=== PATIENT | female | born 1960 | race Caucasian/White ===

== ENCOUNTER 2017-09-16 17:20 | Emergency (ER) | payer SELFPAY ==
[2017-09-16 17:21] VITALS: BP 140/96; PULSE 121; RESP 16; TEMP 36.9; O2SAT 98; BMI 26.5
[2017-09-16 17:33] VITALS: BP 136/84; PULSE 97
[2017-09-16 18:18] LABS: Bacteria 0 SEEN /hpf (None Seen); Mucous, Urine 0 SEEN /hpf (<or=2+)
[2017-09-16 18:21] LABS: Color, Urine Yellow (Yellow); Glucose, Dipstick Normal (Normal); Ketone-Dipstick Negative (Negative); Leukocyte Esterase-Dipstick 500 /ul (Negative); Nitrite-Dipstick Negative (Negative); Occult Blood-Urine 250 /ul (Negative); Protein-Dipstick Negative (Negative); Specific Gravity, Urine 1.005 (1.002-1.030); Urine Bilirubin Dipstick Negative (Negative); Urine Clarity Sl. Cloudy (Clear); Urine Urobilinogen Normal (Normal)
--- NOTE | 2017-09-16 18:21 | ED.VISSUMM ---
- ER Visit Summary Date of Service: 09/16/17 Chief Complaint: UTI symptoms History of Present Illness: The patient is a 57 F with onset of dysuria, urgency, and frequency with urination today. Patient has not noted any blood in her urine. She denies fever or back pain. Physical Examination: Vital signs are unremarkable. Patient is in no acute distress and is nontoxic appearing. Head and neck examination is normal. Heart is regular rate and rhythm. Palpable pulses are noted throughout. Lungs are clear with good air movement throughout. Abdomen is soft with suprapubic tenderness to palpation. There is no back or CVA tenderness. Test Results: Urinalysis reveals 500 leukocyte esterase, 250 blood, 5-10 white blood cells. Emergency Department Course and Treatment: Patient has documented allergies to sulfa and penicillins. She is given a dose of Cipro along with Azo. Treatment Plan: [] Disposition: Discharge Impression: Cystitis This note was generated with [employer] dictation software. It may contain incorrect words, spelling, and punctuation that were not noted in review of the chart prior to signing ED Disposition - Plan for ED Patient: Chief Complaint: Complaint Referrals: Anoop Bales DO [Primary Care Provider] -
[2017-09-16 18:40] LABS: Red Blood Cells-Urine 0-5 SEEN /hpf (0-5); Squamous Epithelial Cells - UA 0-5 SEEN /hpf (5-10); White Blood Cells 5-10 SEEN /hpf (0-5)
--- NOTE | 2017-09-16 18:45 | ED.DEP ---
ED Disposition - Plan for ED Patient: Disposition: Home or Assisted Living Chief Complaint: Complaint Instructions: ED UTI Cystitis Female Prescriptions: Phenazopyridine HCl [Pyridium] 200 mg PO BID PRN PRN #6 tablet PRN Reason: Pain Ciprofloxacin [Cipro] 500 mg PO BID #6 tablet Referrals: Anoop Bales DO [Primary Care Provider] - 1 Week if not improving
[2017-09-16] MEDS: Ciprofloxacin 500 MG Tablet PO (18:52)
[2017-09-16] MEDS: Phenazopyridine 95 MG Tablet 190 MG PO (18:52)
[2017-09-16 18:56] VITALS: BP 131/79; PULSE 91; RESP 16; O2SAT 98
== END 2017-09-16 18:57 | disposition home or self-care (01) ==
PROVIDERS: Emergency Provider Emergency Medicine; Family Provider Student in an Organized Health Care Education/Training Program; PCP Student in an Organized Health Care Education/Training Program
DX: N30.90 Cystitis, unspecified without hematuria (principal); J45.909 Unspecified asthma, uncomplicated; E78.00 Pure hypercholesterolemia, unspecified; K21.9 Gastro-esophageal reflux disease without esophagitis; Z72.0 Tobacco use; Z88.2 Allergy status to sulfonamides
CPT/HCPCS: 81001; 87086; 87088; 87186; 99283

== ENCOUNTER 2018-04-30 11:33 | Emergency (ER) | payer SELFPAY ==
[2018-04-30 11:34] VITALS: BP 128/84; PULSE 121; RESP 16; TEMP 35.8; O2SAT 96; BMI 28.4
--- NOTE | 2018-04-30 12:04 | ED.VISSUMM ---
- ER Visit Summary Date of Service: 04/30/18 Chief Complaint: Left-sided chest discomfort post left axillary lymph node biopsy History of Present Illness: The patient is a 57 F recently diagnosed in late March with breast cancer. On Tuesday she had a left lymph node axillary biopsy. Said since that time she has had pain with taking a deep breath. Denies any significant shortness of breath. No hemoptysis. No history of DVT or PE. She has had 2 recent biopsies. She denies any leg pain or swelling. No fever. No significant cough. She is scheduled to have a left mastectomy for breast cancer. Physical Examination: Well-appearing middle-age female no acute distress. Vital signs are stable her heart rate is in the 120s. Pulse ox is 96% on room air no hypoxia. No distress. H EENT exam smell of smoke on her breath. Otherwise unremarkable. Neck nontender no lymphadenopathy. Lungs clear to auscultation bilaterally. Equal and symmetrical. Heart regular rhythm rate about 110 120 no murmur. Chest wall nontender. No crepitance. No subcu air. Left axillary area there is a small bandage is dry and clean. No signs of infection. Back nontender. Abdomen soft nontender. Normal bowel sounds no peritoneal signs. She is moving all 4 extremities. The neurovascular intact. Calves are nontender without edema or cords. Neurologically she is awake alert with no focal motor deficits. Test Results: Chest x-ray 2 views AP and lateral shows small left-sided apical pneumothorax. I spoke to Dr. Stevan Lamas information technology coordinator for Dr. Davis for general surgery. He did want me to obtain a CT of the chest without contrast which again showed a left-sided pneumothorax equal to or less than 10%. Emergency Department Course and Treatment: Patient will be discharged home to follow-up with her office in a day or so. Treatment Plan: Follow-up with Dr. Annie Davis's office tomorrow to be reevaluated for the pneumothorax. The pneumothorax may be secondary to the biopsy and may be from a ruptured apical lung bleb from her smoking history. Disposition: Discharge Impression: Left-sided chest pain secondary to a small left-sided pneumo thorax History of recently diagnosed breast CA with recent left axillary lymph node biopsy This note was generated with [employer] dictation software. It may contain incorrect words, spelling, and punctuation that were not noted in review of the chart prior to signing ED Disposition - Plan for ED Patient: Chief Complaint: Shortness of Breath Referrals: Yeison Murcia MD [Primary Care Provider] -
--- NOTE | 2018-04-30 12:15 | RAD_ITS ---
STUDY: X-RAY CHEST REASON FOR EXAM: Female, 57 years old. Shortness of breath and pain with breathing. Recent diagnosis of breast cancer as well as left axillary lymph node biopsy 2 days ago. TECHNIQUE: PA and lateral views of the chest. COMPARISON: None. FINDINGS: There is a small left apical pneumothorax (<10%). There is hyperinflation of the lungs consistent with obstructive lung disease. There is minor subsegmental atelectasis in the left lung base. There is no demonstrated pleural abnormality. Normal size heart. Normal mediastinum and lulu. Normal visualized pulmonary arteries. There is mild atherosclerotic calcification of the aortic arch. Normal visualized thoracic spine. Normal visualized ribs, clavicles, and shoulders. There is no demonstrated abnormality of the visualized soft tissue structures of the upper abdomen. RAD/Chest PA and Lateral IMPRESSION: 1. Hyperexpanded suggesting obstructive pulmonary disease. 2. Small left apical pneumothorax with mild subsegmental atelectasis in the left lung base. N.B. : The above information has been verbally conveyed by Negro Taylor MD to Jassi Cabrera MD, on 04/30/2018 12:47:40 (ET). Electronically Signed: Negro Taylor MD at 12:49 EST , Service support ,
--- NOTE | 2018-04-30 12:41 | CT_ITS ---
STUDY: CT CHEST/THORAX WITHOUT CONTRAST REASON FOR EXAM: Female, 57 years old. Shortness of breath and chest pain 2 days after left axillary lymph node biopsy. Pneumothorax noted on chest x-ray. RADIATION DOSAGE (If Supplied By Facility): CTDIvol = ( 10.73 ) mGy, DLP = ( 439.79 ) mGycm TECHNIQUE: Transaxial imaging was performed without the administration of intravenous contrast material. Multiplanar coronal and sagittal images were reformatted. Individualized dose optimization techniques were used for this CT. COMPARISON: PA and lateral chest x-ray 1217 hours. FINDINGS: There is a small left pneumothorax (R10%). Atelectasis seen in the left lung base and, to a lesser degree, in the apical and anterior periphery of the left upper lobe where there is also minimal subsegmental atelectasis in the right posterior costophrenic sulcus. There is subtle 1 cm groundglass density in the lateral left upper lobe on series 4 image 46, series 602 image 92 may be focal volume loss, hemorrhage, or inflammatory change. Normal heart and pericardium. There is a 1.55 x 0.9 x 1.9 cm precarinal lymph node. Just below this is a 1.25 x 0.65 x 0.85 cm lymph node with a fatty hilus. Other nonspecific lymph nodes also seen in the mediastinal tissues and aorticopulmonary window. There is a 1.75 x 1.2 x 0.35 cm lymph node medial to the right lower lobe bronchus. Normal left hilar region. Normal unenhanced pulmonary arteries. There is mild atherosclerotic calcification of the aortic arch. There are scattered, mild degenerative changes of the thoracic spine. There is ill-defined hazy and stranding density of mild hemorrhage or edema in the left axillary tissues, surrounding a number of upper normal size lymph nodes. There is no demonstrated abnormality of the visualized upper abdomen. CT/Chest without Contrast IMPRESSION: 1. Small left pneumothorax. There is mild posterior basilar subsegmental atelectasis, greater on the left. 2. Ill-defined ecchymosis or edema seen in the left axillary tissue surrounding a number of upper normal size lymph nodes. 3. Mildly enlarged precarinal lymph node, as well as other nonspecific lymph nodes in the mediastinal tissues and aorticopulmonary window. No overtly suspicious adenopathy. Electronically Signed: Negro Taylor MD at 13:39 EST , Service support ,
--- NOTE | 2018-04-30 14:00 | ED.DEP ---
ED Disposition - Plan for ED Patient: Disposition: Home or Assisted Living Chief Complaint: Shortness of Breath Instructions: Pneumothorax (Collapsed Lung) Prescriptions: Hydrocodone/Acetaminophen [[place] 7.5-325 Tablet] 1 ea PO Q6H PRN PRN #14 tab PRN Reason: Pain Referrals: Annie Davis MD [STAFF PHYSICIAN] - 1 Day Additional Instructions: Follow-up with Dr. Annie Davis's office tomorrow. You need to be reevaluated to make sure that the thorax is improving and not getting larger. They will need to repeat a chest x-ray in 1-2 days.
[2018-04-30 14:08] VITALS: BP 128/74; PULSE 85; RESP 16; O2SAT 95
== END 2018-04-30 14:09 | disposition home or self-care (01) ==
PROVIDERS: Emergency Provider Emergency Medicine; Family Provider Internal Medicine; PCP Internal Medicine
DX: J93.9 Pneumothorax, unspecified (principal); Z85.3 Personal history of malignant neoplasm of breast; Z72.0 Tobacco use; Z90.11 Acquired absence of right breast and nipple
CPT/HCPCS: 71046; 71250; 99283

== ENCOUNTER 2018-09-14 17:07 | Emergency (ER) | payer MEDICAID, SELFPAY ==
[2018-09-14 17:09] VITALS: BP 130/74; PULSE 90; RESP 17; TEMP 36.9; O2SAT 95; BMI 28.3
[2018-09-14 17:39] VITALS: O2SAT 100
--- NOTE | 2018-09-14 17:39 | EKG12_ITS ---
Test Reason : PALPS Blood Pressure : / mmHG Vent. Rate : 080 BPM Atrial Rate : 080 BPM P-R Int : 128 ms QRS Dur : 086 ms QT Int : 404 ms P-R-T Axes : 055 070 035 degrees QTc Int : 465 ms Normal sinus rhythm Normal ECG Confirmed by CHICO CARR, AYO ([id number]), video effects editor FRANTZ IBARRA ([id number]) on 09/18/2018 11:08:45 AM Referred By: LUIS CARLOS Confirmed By:AYO GOLDEN MD
--- NOTE | 2018-09-14 17:40 | RAD_ITS ---
STUDY: X-RAY CHEST REASON FOR EXAM: Female, 58 years old. Palpitations. History of breast cancer. TECHNIQUE: Single AP portable view of the chest. COMPARISON: CT of the chest, April 30, 2018. Chest, April 30, 2018. FINDINGS: Telemetry wires overlie the chest. There is a right subclavian Port-A-Cath with its tip in the distal superior vena cava. The lungs are hyperexpanded. There is chronic interstitial changes most marked at the lung bases. No new infiltrate or mass is seen. There is resolution of the left pneumothorax noted on the prior study. There is no demonstrated pleural abnormality. Normal size heart. Normal mediastinum and lulu. Normal visualized pulmonary arteries. Again seen is minimal atherosclerotic changes of the aortic arch. The thoracic spine is obscured by the mediastinum. Normal visualized ribs, clavicles, and shoulders. There is no demonstrated abnormality of the visualized soft tissue structures of the upper abdomen. RAD/Chest 1 View (Portable) IMPRESSION: 1. Right Port-A-Cath not noted on the prior study. 2. Probable COPD no acute cardiopulmonary disease Electronically Signed: Jasbir Dumont DO at 18:15 EDT Tel [phone], Service support ,
--- NOTE | 2018-09-14 17:40 | ED.VISSUMM ---
- ER Visit Summary Date of Service: 09/14/18 Chief Complaint: Palpitations History of Present Illness: The patient is a 58 F of breast CA with recently diagnosed lymphatic, bone and lung metastases. Currently under chemotherapy with the last chemotherapy being last week. She also has hypothyroidism. Patient states since Tuesday and Tuesday she had intermittent elevated heart rate. She denies chest pain. She denies shortness of breath. She denies hemoptysis. She is never had a DVT or PE. She denies calf pain or swelling. States that accelerated heart rate is intermittent. Nothing specifically makes it better or worse. She denies any melena or fever. Physical Examination: Well-appearing middle-age female. Vital signs are stable and afebrile. Currently her heart rate is 90. Her pulse ox 95% room air no signs of hypoxia. No distress. HEENT exam unremarkable except she does have a blue wig on. Neck nontender no lymphadenopathy. Lungs clear to auscultation bilaterally. Heart regular rhythm rate about 90 occasional PVC. No murmur. Abdomen soft and nontender. Extremities moves all 4. Calves are nontender without edema or cords. Neurologically she is awake and alert with no focal motor deficits. Test Results: CBC White count 2 hemoglobin 10.6. Chemistries unremarkable normal creatinine and gap. Troponin normal. D-dimer normal. EKG sinus rhythm rate 80 with no signs of dysrhythmia or ischemia. Chest x-ray chronic changes COPD right-sided MediPort. No acute abnormality. Emergency Department Course and Treatment: Patient with palpitations and PVCs. Repeat exam patient doing well at 1935. Discussed all test results will be discharged home. Treatment Plan: Follow-up with your doctor. Disposition: Discharge Impression: Acute palpitations secondary to PVCs History of breast cancer with metastases This note was generated with [employer] dictation software. It may contain incorrect words, spelling, and punctuation that were not noted in review of the chart prior to signing ED Disposition - Plan for ED Patient: Referrals: Sujatha Mcdonald MD [Primary Care Provider] -
--- NOTE | 2018-09-14 17:42 | NURSING ---
NO OLD EKGS
[2018-09-14 18:26] VITALS: BP 126/78; PULSE 73; RESP 21; O2SAT 98
[2018-09-14 18:35] LABS: Basophil# 0.05 X10^3/uL; Basophil% 2.1 % (0-1); Hematocrit 32.3 % (37-47); Hemoglobin 10.6 g/dl (12.0-15.0); Mean Corp Hgb Conc 32.8 g/gl (32-36); Mean Corpuscular Hgb 29.5 pg (27.0-32.0); Mean Platelet Vol. 9.7 fl (6.2-12.0); Platelet Count 253 K/mm3 (150-450); RBC Distribution Width CV 13.8 % (11.6-14.6); RBC Distribution Width SD 45.6 fl (35.1-43.9); Red Blood Count 3.59 M/mm3 (4.2-5.4); White Blood Count 2.4 K/mm3 (4.4-11.0)
[2018-09-14] MEDS: Aspirin 81 MG TAB.CHEW 324 MG PO (18:35)
[2018-09-14 18:36] LABS: Absolute Lymphocyte Count 0.81 X10^3/ul (0.83-4.51); Absolute Neutrophil Count 1.3 X10^3/uL (2.0-7.7); Differential Indicated SCAN CRITERIA MET; Lymphocyte # 0.81 X10^3/ul (4.0); Lymphocyte % 33.6 % (19-41); Monocyte# 0.23 X10^3/uL; Monocyte% 9.5 % (0-10); Neutrophil # 1.29 X10^3/uL (2.7-7.7); Neutrophil % 53.6 % (47-70); POSITIVE COUNT NO; POSITIVE DIFFERENTIAL NO; POSITIVE MORPHOLOGY YES
[2018-09-14 18:40] LABS: D-Dimer Quantitative (DVT/PE) < 0.27 FEU/ug/m (0.27-0.49)
[2018-09-14 18:45] LABS: Differential Comment SCANNED
[2018-09-14 18:47] LABS: Anion Gap 7 (5-15); BUN 13 mg/dL (7-18); BUN/Creat Ratio 19.4 RATIO (10-20); Calcium,Total 8.7 mg/dL (8.5-10.1); Chloride 106 mmol/L (98-107); Creatinine, Serum 0.67 mg/dL (0.55-1.02); EST Glomerular Filtration Rate 96 mL/min (>60); Est Glom Filt Rate - Afr Amer 117 mL/min (>60); Estimated Creatinine Clearance 86.73 ml/min; Glucose 115 mg/dL (74-106); Potassium 3.7 mmol/L (3.5-5.1); Sodium Level 140 mmol/L (136-145)
--- NOTE | 2018-09-14 19:37 | ED.DEP ---
ED Disposition - Plan for ED Patient: Instructions: ED Palpitations Prescriptions: Lorazepam [Ativan] 1 mg PO DAILY PRN PRN #20 tab PRN Reason: prn anxiety Referrals: Sujatha Mcdonald MD [Primary Care Provider] - As Needed Additional Instructions: Return if feeling worse otherwise follow-up with your doctor.
[2018-09-14 20:32] VITALS: BP 124/69; PULSE 87; RESP 16; O2SAT 98
== END 2018-09-14 20:36 | disposition home or self-care (01) ==
LOC: ED 18:00
PROVIDERS: Emergency Provider Emergency Medicine; Family Provider Internal Medicine; PCP Internal Medicine
DX: I49.3 Ventricular premature depolarization (principal); R00.2 Palpitations; C50.919 Malignant neoplasm of unspecified site of unspecified female breast; C78.00 Secondary malignant neoplasm of unspecified lung; C77.9 Secondary and unspecified malignant neoplasm of lymph node, unspecified; C79.51 Secondary malignant neoplasm of bone; E03.9 Hypothyroidism, unspecified
CPT/HCPCS: 36591; 71045; 80048; 84484; 85025; 85379; 93005; 99284; A4216

== ENCOUNTER 2018-10-15 16:34 | Emergency (ER) | payer MEDICAID, SELFPAY ==
[2018-10-15 16:37] VITALS: BP 124/101; PULSE 111; RESP 16; TEMP 36.8; O2SAT 96; BMI 28.0
[2018-10-15 17:16] LABS: Color, Urine Yellow (Yellow); Glucose, Dipstick Normal (Normal); Ketone-Dipstick 5 mg/dl (Negative); Leukocyte Esterase-Dipstick 500 /ul (Negative); Nitrite-Dipstick Negative (Negative); Occult Blood-Urine 25 /ul (Negative); Protein-Dipstick 15 mg/dl (Negative); Specific Gravity, Urine 1.025 (1.002-1.030); Urine Bilirubin Dipstick Negative (Negative); Urine Clarity Clear (Clear); Urine Urobilinogen 1 mg/dl (Normal)
[2018-10-15 17:26] LABS: Bacteria 3+ /hpf (None Seen); Mucous, Urine 2+ /hpf (<or=2+); Red Blood Cells-Urine 0-5 SEEN /hpf (0-5); Squamous Epithelial Cells - UA 5-10 SEEN /hpf (5-10); White Blood Cells 50-100 SEEN /hpf (0-5)
--- NOTE | 2018-10-15 17:29 | ED.VISSUMM ---
- ER Visit Summary Date of Service: 10/15/18 Chief Complaint: [Pelvic pain] History of Present Illness: The patient is a 58 F [presents the emergency department with complaint of pelvic discomfort. Patient states that she is currently on chemotherapy for history of breast cancer. Patient states the chemotherapy affects her mucous membranes and she developed some ulcerations on her labia. Patient states that she has been washing her labia with some sort of wipes and sustained this abrasion that is not wanting to heal well. Patient now also describing burning with urination. Describes frequency. She denies any fevers. Patient has history of hypothyroidism, high cholesterol, asthma, breast cancer, and GERD.] Physical Examination: [HEENT-PERRLA, EOMI. Cranial nerves II through XII grossly intact. TMs clear. Mucous membranes moist. No adenopathy. Cardiovascular-regular rate and rhythm without murmur or ectopy Lungs-clear to auscultation, chest wall stable without crepitus or subcu emphysema Abdomen-normoactive bowel sounds, soft, nontender, no rebound or rigidity, no peritoneal signs. exam-patient refused exam Extremities-intact ?4, normal range of motion, normal pulses, atraumatic] Test Results: [Urinalysis obtained was positive for 500 leukocyte esterase as well as 50-100 WBCs and +3 bacteria. Urine culture was sent.] Emergency Department Course and Treatment: [Patient was treated with ciprofloxacin.] Treatment Plan: [Patient will be referred to EQUITY DIRECTOR on-call as patient refused to allow me to examine her. Patient will be treated with Cipro.] Disposition: [Discharged home in stable condition] Impression: [UTI] This note was generated with [employer] dictation software. It may contain incorrect words, spelling, and punctuation that were not noted in review of the chart prior to signing ED Disposition - Plan for ED Patient: Referrals: Sujatha Mcdonald MD [Primary Care Provider] -
--- NOTE | 2018-10-15 17:32 | ED.DEP ---
ED Disposition - Plan for ED Patient: Instructions: ED UTI Cystitis Female Prescriptions: Ciprofloxacin [Cipro] 500 mg PO BID #14 tab Phenazopyridine HCl [Pyridium] 200 mg PO TID #10 tab Referrals: Sujatha Mcdonald MD [Primary Care Provider] - Hortensia Coleman MD [STAFF PHYSICIAN] - 3-5 Days
[2018-10-15 17:39] VITALS: BP 126/86; PULSE 87; RESP 16; O2SAT 97
[2018-10-15] MEDS: Ciprofloxacin 500 MG Tablet PO (17:39)
== END 2018-10-15 17:52 | disposition home or self-care (01) ==
PROVIDERS: Emergency Provider Emergency Medicine; Family Provider Internal Medicine; PCP Internal Medicine
DX: N39.0 Urinary tract infection, site not specified (principal); K21.9 Gastro-esophageal reflux disease without esophagitis; E03.9 Hypothyroidism, unspecified; Z85.3 Personal history of malignant neoplasm of breast; Z87.891 Personal history of nicotine dependence; E78.00 Pure hypercholesterolemia, unspecified; J45.909 Unspecified asthma, uncomplicated
CPT/HCPCS: 81001; 99283

== ENCOUNTER 2021-02-18 10:55 | Emergency (ER) | payer MEDICAID, SELFPAY ==
[2021-02-18 10:56] VITALS: BP 112/89; PULSE 130; RESP 18; TEMP 36.6; O2SAT 99; BMI 28.2
--- NOTE | 2021-02-18 11:08 | ED.RN ---
PT STATES HER HEART HAS BEEN POUNDING FOR 3 DAYS. RESPIRATORY CALLED FOR EKG. HEART MONITOR PLACED.
--- NOTE | 2021-02-18 11:16 | EKG12_ITS ---
Test Reason : PALP Blood Pressure : / mmHG Vent. Rate : 126 BPM Atrial Rate : 126 BPM P-R Int : 136 ms QRS Dur : 076 ms QT Int : 332 ms P-R-T Axes : 081 012 041 degrees QTc Int : 480 ms Sinus tachycardia with frequent and consecutive Premature ventricular complexes and Fusion complexes Biatrial enlargement Indeterminate axis Nonspecific ST abnormality Poor R wave progression Abnormal ECG Confirmed by ANNAMARIE CARR, LISA ([id number]), publishing editor FRANTZ IBARRA ([id number]) on 02/24/2021 7:37:38 AM Referred By: MARC/RANJAN Confirmed By:LISA DE LUNA MD
--- NOTE | 2021-02-18 11:37 | RAD_ITS ---
STUDY: X-RAY CHEST REASON FOR EXAM: Female, 60 years old. Chest pain/pressure TECHNIQUE: PA and lateral views of the chest. COMPARISON: 09/14/2018 FINDINGS: EKG leads overlie the chest, previously noted right subclavian port has been removed. Lungs are mildly hyperexpanded without a superimposed process.. There is no demonstrated pleural abnormality. Normal size heart. Normal mediastinum and lulu. Normal visualized pulmonary arteries. Normal visualized aortic arch and descending thoracic aorta. Normal visualized thoracic spine. Normal visualized ribs, clavicles, and shoulders. There is no demonstrated abnormality of the visualized soft tissue structures of the upper abdomen. RAD/Chest PA and Lateral IMPRESSION: No acute pulmonary process Electronically Signed: Negro Shah MD at 12:19 EDT , Service support ,
--- NOTE | 2021-02-18 11:39 | EDS_ITS ---
HPI History of Present Illness Chief Complaint: Back Informant: patient Onset/Context/Timing Onset: Weeks Context: Gradual Onset Injury: lifting and bending Timing: Continuous Quality: Sharp and Aching Location: Thoracic Current Severity: Mild Maximum Severity: Moderate Worsened by: improves with Movement, Bending and Lifting Relieved by: Remaining Still Associated Symptoms Associated Symptoms: Negative for Numbness, Tingling, Radiation to Right Leg, Radiation to Left Leg, Fever, Abdominal Pain, Dysuria, Unable to Ambulate, Unable to Transfer, Urinary Retention, Urinary Incontinence, Constipation and Fecal Incontinence Narrative Narrative: 60-year-old female had a history of breast cancer 2 to 3 years ago for which she had a left mastectomy. She did have metastases to her lymph nodes. States about 3 weeks ago her fell she lifted him up to help him up off the ground and several days later developed pain in her left posterior lower rib cage and flank. Denies any other symptoms. Worse with movement. Worse with bending or turning. No shortness of breath. No chest pain. No dy suria or hematuria. No falls or trauma herself. No fever or chills. Patient is having PVCs and states she recently had a low potassium. Prior similar symptoms: No Recent Illness/Hospitalization: No PFSH PFSH Medical History Hx of breast cancer Hypothyroid Home Medications levothyroxine 150 mcg PO DAILY 09/10/13 [History Last Taken Unknown] lorazepam 1 mg PO DAILY PRN PRN #20 tab 09/14/18 [Rx Last Taken Unknown] Allergy/AdvReac Type Severity Reaction Status Date / Time Sulfa (Sulfonamide Allergy Anaphylaxis Verified 02/18/21 10:57 Antibiotics) Penicillins [PCN] AdvReac Nausea Verified 02/18/21 10:57 Surgical History Hx of left mastectomy Social History Smoking Status: Former smoker ROS ROS ED ROS Narrative Denies fever or chills. Denies nausea vomiting diarrhea. Denies dysuria hematuria. Does have increased left posterior rib cage pain with movement. Review of Systems ROS Unobtainable: Denies due to encephalopathy Constitutional Constitutional ED: Denies fever(s) or subjective Eyes Eyes: Denies change in vision ENT ENT ED: Denies ear pain or sore throat Cardiovascular Cardiovascular: Denies chest pain Respiratory/Chest Respiratory/Chest: Denies dyspnea or sputum Gastrointestinal Gastrointestinal: Denies abdominal pain, diarrhea, nausea or vomiting Genitourinary Genitourinary ED: Denies dysuria Musculoskeletal Musculoskeletal: Denies myalgias Integumentary Denies rash Neurologic Neurologic: Denies headache(s) Psychiatric Psychiatric: Denies depression Endocrine Endocrinology: Denies polyuria Hematologic/Lymphatic Hematologic/Lymphatic: Denies easy bruising Allergic/Immunologic Allergic/Immunologic ED: Denies urticaria EXAM Physical Exam Narrative Exam Narrative: Well-appearing middle-aged female. No acute distress HEENT exam unremarkable. Lungs are clear. Heart regular rate and rhythm no murmur. Chest nontender. Back nonreproducible tenderness. But left posterior rib cage pain with movement. Abdomen soft nontender no masses no peritoneal signs. Patient moving all 4 extremities. Neurovascular intact. No edema. Neurologically awake alert no focal deficits. Const Vital Signs: 02/18/21 10:56 Temperature 97.9 F Temperature Source Temporal Pulse Rate 130 H Respiratory Rate 18 Blood Pressure 112/89 H Blood Pressure Mean 96 Pulse Ox 99 Oxygen Delivery Method Room Air Positive well nourished and well developed; Negative for obese, cachectic, contractures or unkempt General Appearance ED: well developed and NAD; Negative for unkempt, cachectic or contractures Nutritional Appearance: Negative for cachectic or obese HEENT Reports moist mucous membranes Negative for trauma or tenderness Eyes PERRL and EOMs intact bilaterally Neck no lymphadenopathy, supple and no JVD General: Negative for tenderness Resp normal respiratory effort and clear to auscultation bilaterally Cardio regular rate, regular rhythm, S1 normal heart sound, S2 normal heart sound and no murmurs GI normal to inspection, nondistended, normoactive bowel sounds, soft to palpation, non-tender, non-distended and no masses Palpation: Negative for tender Back/Spine normal to inspection and no thoracic nor lumbar tenderness General Back: Negative for CVA tenderness Cervical Spine: Negative for cervical spine tenderness and Negative for paracervical muscle tenderness Thoracic Spine / Upper Back: Negative for paraspinal muscle tenderness Lumbar Spine / Lower Back: straight leg raise negative bilaterally Extremity normal to inspection General Extremety ED: Negative for edema or tenderness General Extremity: Negative for edema Neuro oriented x3 and no sensory deficits noted Sensorium / Orientation: alert; Negative for confused, lethargic or stuporous Psych mental status grossly normal Appearance: Negative for unkempt Attitude: No agitated and No other Mood & Affect: Negative for depressed or tearful Skin no rashes or lesions noted and no wounds MDM MDM MDM Narrative Medical decision making narrative: 60-year-old female with left flank. Pain primarily over the posterior ribs is not reproducible get worse with movement. I do think this is musculoskeletal however with her history of cancer I am obtaining some screening labs and an x-ray of her chest. Repeat exam patient is doing well at 1:20 PM. We discussed all of her test results of x-ray and she will be discharged home. Ice to the area, anti- inflammatories and follow-up if not improving. Lab Data Attestation: I reviewed the patient's lab results. Lab results narrative: CBC had a white count 9.8. Hemoglobin 14. Electrolytes were normal creatinine glucose 116. Chest x-ray portable no acute abnormality. Labs: Laboratory Results - last 24 hr 02/18/21 02/18/21 11:44 11:44 WBC 9.8 RBC 4.92 Hgb 14.7 Hct 43.8 MCV 89.0 MCH 29.9 MCHC 33.6 RDW Std Deviation 44.6 H RDW Coeff of Corrine 13.6 Plt Count 230 MPV 11.0 Immature Gran % (Auto) 0.300 Neut % (Auto) 72.0 H Lymph % (Auto) 22.2 [place] % (Auto) 4.2 Eos % (Auto) 0.4 Baso % (Auto) 0.9 Absolute Neuts (auto) 7.0 Absolute Lymphs (auto) 2.17 Nucleated RBC % 0 Sodium 140 Potassium 4.0 Chloride 111 H Carbon Dioxide 25.0 Anion Gap 4 L BUN 11 Creatinine 0.69 Estim Creat Clear Calc 82.18 Est GFR (MDRD) Af Amer 113 Est GFR (MDRD) Non-Af 93 BUN/Creatinine Ratio 16.0 Glucose 116 H Calcium 9.6 Radiography Diagnostic Testing: Radiology Impression Chest X-Ray 02/18/21 11:37 IMPRESSION: No acute pulmonary process Electronically Signed: Negro Shah MD at 12:19 EDT , Service support , Chest x-ray AP and lateral 2 views interpreted by myself and the radiologist shows no acute abnormality. Normal cardiac silhouette. Normal ribs. No infiltrate. Rhythm Strip Rhythm Strip: Sinus Rhythm Rate: 126 Ectopy: PVC(s) EKG Initial EKG: Attestation: I personally reviewed and interpreted this EKG as follows: Interpretation: Sinus Rhythm and No Acute Injury Pattern Comments: Sinus tachycardia rate of 126 PVCs that are frequent. No signs of CA or ischemia. Prior EKG tracings: available for review Discharge Plan Triage Chief Complaint: Back ED Provider: Dru Cabrera Dx/Rx/DC Orders Clinical Impression: Muscle strain of left upper back Instructions: ED Back Sprain/Strain Prescriptions: No Action levothyroxine 150 MCG tablet 150 mcg PO DAILY RF: 0 lorazepam 1 MG tablet 1 mg PO DAILY PRN PRN (Reason: prn anxiety) Qty: 20 RF: 0 Primary Care Provider: Sujatha Mcdonald Referrals: Sujatha Mcdonald MD [Primary Care Provider] - 10-14 Days if not better Activity Restrictions/Additional Instructions: Your labs and chest x-ray were unremarkable. This appears to be a strain of the intercostal muscles of your posterior rib cage. This should progressively improve but may take several weeks. Ice to your back. Motrin for pain and inflammation. Follow-up if not improving. Disposition Disposition: Home, Self Care
[2021-02-18 11:52] LABS: Absolute Lymphocyte Count 2.17 X10^3/uL (0.83-4.51); Basophil# 0.09 X10^3/uL; Basophil% 0.9 % (0-1); Eosinophil# 0.04 X10^3/uL; Eosinophils% 0.4 % (0-5); Hematocrit 43.8 % (37-47); Hemoglobin 14.7 g/dL (12.0-15.0); Lymphocyte # 2.17 X10^3/ul (0.83-4.51); Lymphocyte % 22.2 % (19-41); Mean Corp Hgb Conc 33.6 g/dL (32-36); Mean Corpuscular Hgb 29.9 pg (27.0-32.0); Monocyte# 0.41 X10^3/uL; Monocyte% 4.2 % (0-10); NRBC Flagged by Analyzer 0 % (0-5); Neutrophil # 7.02 X10^3/uL (2.7-7.7); Platelet Count 230 K/mm3 (150-450); RBC Distribution Width CV 13.6 % (11.6-14.6); RBC Distribution Width SD 44.6 fl (35.1-43.9); Red Blood Count 4.92 M/mm3 (4.2-5.4); White Blood Count 9.8 K/mm3 (4.4-11.0)
[2021-02-18 12:04] LABS: Anion Gap 4 (5-15); BUN 11 mg/dL (7-18); Calcium,Total 9.6 mg/dL (8.5-10.1); Chloride 111 mmol/L (98-107); Creatinine, Serum 0.69 mg/dL (0.55-1.02); EST Glomerular Filtration Rate 93 mL/min (>60); Est Glom Filt Rate - Afr Amer 113 mL/min (>60); Estimated Creatinine Clearance 82.18 ml/min; Glucose 116 mg/dL (74-106); Sodium Level 140 mmol/L (136-145)
[2021-02-18 13:37] VITALS: PULSE 91; RESP 18; O2SAT 98
== END 2021-02-18 13:38 | disposition home or self-care (01) ==
PROVIDERS: Emergency Provider Emergency Medicine; PCP Internal Medicine
DX: S29.012A Strain of muscle and tendon of back wall of thorax, initial encounter (principal); X58.XXXA Exposure to other specified factors, initial encounter; E03.9 Hypothyroidism, unspecified; I49.3 Ventricular premature depolarization; Z85.3 Personal history of malignant neoplasm of breast; Z87.891 Personal history of nicotine dependence
CPT/HCPCS: 71046; 80048; 85025; 93005; 99283; A4216

== ENCOUNTER 2021-03-14 12:12 | Emergency (ER) | payer MEDICAID, SELFPAY ==
[2021-03-14 12:14] VITALS: BP 146/86; PULSE 109; RESP 16; TEMP 36.4; O2SAT 98; BMI 25.2
--- NOTE | 2021-03-14 12:28 | EKG12_ITS ---
Test Reason : SIDE PAIN Blood Pressure : / mmHG Vent. Rate : 096 BPM Atrial Rate : 096 BPM P-R Int : 140 ms QRS Dur : 078 ms QT Int : 334 ms P-R-T Axes : 082 024 027 degrees QTc Int : 421 ms Normal sinus rhythm with sinus arrhythmia Right atrial enlargement Indeterminate axis Low voltage QRS (Limb Leads) Poor R wave progression Borderline ECG Confirmed by ANNAMARIE CARR, LISA ([id number]), social media editor FRANTZ IBARRA ([id number]) on 03/16/2021 1:20:10 PM Referred By: NEETA Confirmed By:LISA DE LUNA MD
--- NOTE | 2021-03-14 12:28 | CT_ITS ---
HISTORY: Pain EXAMINATION: CT Abdomen And Pelvis W/O Contrast Injection TECHNIQUE: Multiple axial images were obtained of the abdomen and pelvis without oral or IV contrast. A radiation dose optimization technique was used for this scan. IV Contrast dosage and agent: None. Oral contrast: None. COMPARISON: None FINDINGS: LOWER CHEST: Lung bases are clear. No cardiomegaly or pericardial effusion. LIVER: Homogeneous. No focal mass. GALLBLADDER AND BILIARY TREE: No calcified gallstones. No gallbladder distension or wall edema. No intra- or extrahepatic biliary ductal dilation. PANCREAS: No focal cystic or solid mass. SPLEEN: Normal size without focal cystic or solid mass. ADRENAL GLANDS: No nodules. KIDNEYS AND URETERS: Normal renal size and position. No hydronephrosis or nephrolithiasis. PERITONEUM: No ascites or free air. BOWEL: Normal appendix. No stomach or bowel distension. No focal inflammatory bowel wall changes. LYMPH NODES: No enlarged mesenteric or retroperitoneal lymph nodes. VESSELS: Aorta is non-dilated. URINARY BLADDER: Unremarkable. REPRODUCTIVE ORGANS: No pelvic masses. ABDOMINAL WALL: Small fat-containing supraumbilical ventral hernia. BONES: No acute or aggressive abnormality. CT/Abdomen/Pelvis without Cont IMPRESSION: No acute findings in the abdomen or pelvis. Individualized dose optimization techniques were used for this CT. at 1354 Reported and signed by: Asaf Lewis MD Electronically Signed: Asaf Lewis MD at 13:53 EDT Tel , Service support ,
--- NOTE | 2021-03-14 12:29 | EDS_ITS ---
HPI HPI - GI History of Present Illness Chief Complaint: Abd Pain Detail of Chief Complaint: Abdominal pain that started 3 or 4 days ago Informant: patient Narrative Narrative: Patient presents to the emergency department complaint of right upper quadrant pain that started 3 to 4 days ago. Patient states the pain was intermittent at first but now more continuous over the last 24 hours. Patient states she had some vomiting 5 days ago but none since. Patient states that she is always had a hard time eating spicy or greasy foods but does not feel like eating actually makes this pain worse. She is had no fevers. She denies urinary symptoms. Patient has history of breast cancer in remission and she is had prior left mastectomy. [facility] Medical History Hx of breast cancer Hypothyroid Home Medications levothyroxine 150 mcg PO DAILY 09/10/13 [History Last Taken Unknown] Allergy/AdvReac Type Severity Reaction Status Date / Time Sulfa (Sulfonamide Allergy Anaphylaxis Verified 03/14/21 12:16 Antibiotics) Penicillins [PCN] AdvReac Nausea Verified 03/14/21 12:16 Surgical History Hx of left mastectomy Social History Smoking Status: Former smoker ROS ROS ED Constitutional Constitutional ED: Reports systems reviewed and no addt'l complaints, except as documented; Denies body ache(s), change in weight or chills Eyes Eyes: Denies acute decrease in peripheral vision, change in vision, double vision or loss of vision ENT ENT ED: Reports none; Denies ear pain, lip swelling, loss taste/smell, neck pain, otalgia or sore throat Cardiovascular Cardiovascular: Reports none; Denies abdominal pain, chest pain with activity, leg edema, lightheadedness, palpitations, rapid heart rate or syncope Respiratory/Chest Respiratory/Chest: Reports none; Denies change in mental status, dry cough, dyspnea, hemoptysis, shortness of breath at rest or shortness of breath with exertion Gastrointestinal Gastrointestinal: Reports none and abdominal pain; Denies change in stool character, diarrhea, hematemesis, hematochezia, melena, rectal bleeding or vomiting Genitourinary Genitourinary ED: Reports none; Denies abdominal discomfort, anuria, dysuria, genital pain or polyuria Musculoskeletal Musculoskeletal: Reports none; Denies arthralgias, back pain, difficulty walking, extremity pain, muscle weakness or myalgias Integumentary Reports none; Denies abscess or rash Neurologic Neurologic: Reports none; Denies abnormal gait, confusion, focal weakness, frequent falls, headache(s), loss of vision, numbness, paresthesias, radicular pain, vertigo or weakness Psychiatric Psychiatric: Reports systems reviewed and no addt'l complaints, except as documented and none; Denies behavioral changes, confusion, difficulty concentrating, hallucinations, suicidal ideation, tactile hallucinations or visual hallucinations Endocrine Endocrinology: Denies none, cold intolerance, excessive sweating, fatigue or heat intolerance Hematologic/Lymphatic Hematologic/Lymphatic: Reports none; Denies anemia, easy bleeding or easy bruising Allergic/Immunologic Allergic/Immunologic ED: Denies as per HPI, none, lip swelling, mouth swelling, throat swelling, tongue swelling or hives EXAM Physical Exam Const Vital Signs: 03/14/21 12:14 Temperature 97.6 F L Temperature Source Temporal Pulse Rate 109 H Respiratory Rate 16 Blood Pressure 146/86 H Blood Pressure Mean 106 Pulse Ox 98 Oxygen Delivery Method Room Air Positive well nourished and well developed General Appearance ED: well developed and NAD HEENT Reports TM's clear and moist mucous membranes normocephalic and atraumatic; Negative for trauma or tenderness Tympanic Membrane ED: Yes TM's clear Eyes PERRL and EOMs intact bilaterally General Eye ED: Negative for pale conjunctiva or scleral icterus Neck no lymphadenopathy, supple and no JVD General: Negative for tenderness Chest Wall inspection of chest normal and palpation of chest normal Chest: Negative for tenderness Resp normal respiratory effort and clear to auscultation bilaterally Effort and Inspection: Negative for respiratory distress or pain with movement Auscultation: Negative for rhonchi, wheezes or diminished lung sounds Cardio regular rate, regular rhythm, S1 normal heart sound, S2 normal heart sound and no murmurs Peripheral Pulses: pulses 2+ throughout GI normal to inspection, nondistended, normoactive bowel sounds, soft to palpation, non-distended and no masses GI Narrative: Tenderness on palpation of the right chest wall in the midaxillary line.Patient has mild tenderness in the right upper quadrant with some minimal guarding. There is no rebound, rigidity, or peritoneal signs. Back/Spine no CVA tenderness and no thoracic nor lumbar tenderness Extremity normal to inspection General Extremety ED: Negative for edema General Extremity: Negative for edema Neuro oriented x3, CN's II-XII intact bilaterally, no sensory deficits noted and gait normal Sensorium / Orientation: awake, alert, oriented to person, oriented to place and oriented to time Motor Exam: strength 5/5 throughout and strength abnormal Psych mental status grossly normal Skin no rashes or lesions noted and no wounds MDM MDM MDM Narrative Medical decision making narrative: Etiology of patient's pain is unclear. Patient having pain over the area of the right lower ribs in the midaxillary line as well as just minimal discomfort in the right upper quadrant. At this point I suspect likely musculoskeletal etiology. She does not anything for pain for home. Patient advised to return if worsening pain, fever, vomiting, or condition should worsen anyway. Lab Data Attestation: I reviewed the patient's lab results. Labs: Laboratory Results - last 24 hr 03/14/21 03/14/21 03/14/21 12:50 12:50 12:50 WBC 9.8 RBC 5.02 Hgb 14.8 Hct 44.6 MCV 88.8 MCH 29.5 MCHC 33.2 RDW Std Deviation 43.6 RDW Coeff of Corrine 13.3 Plt Count 216 MPV 11.1 Immature Gran % (Auto) 0.400 Neut % (Auto) 65.6 Lymph % (Auto) 27.0 [place] % (Auto) 5.0 Eos % (Auto) 0.8 Baso % (Auto) 1.2 H Absolute Neuts (auto) 6.4 Absolute Lymphs (auto) 2.64 Nucleated RBC % 0 D-Dimer Quant (PE/DVT) Sodium 140 Potassium 3.7 Chloride 107 Carbon Dioxide 25.0 Anion Gap 8 BUN 12 Creatinine 0.90 Estim Creat Clear Calc 65.45 Est GFR (MDRD) Af Amer 82 Est GFR (MDRD) Non-Af 68 BUN/Creatinine Ratio 13.3 Glucose 106 Lactic Acid 2.0 Calcium 9.5 Total Bilirubin 0.80 AST 24 ALT 18 Alkaline Phosphatase 126 H Troponin I High Sens 7 Total Protein 8.1 Albumin 3.7 Globulin 4.4 H Albumin/Globulin Ratio 0.8 L Lipase 92 Urine Color Urine Clarity Urine pH Ur Specific [place] Urine Protein Urine Glucose (UA) Urine Ketones Urine Occult Blood Urine Nitrite Urine Bilirubin Urine Urobilinogen Ur Leukocyte Esterase Urine RBC Urine WBC Ur Squamous Epith Cells Urine Bacteria Urine Mucus 03/14/21 03/14/21 12:50 14:10 WBC RBC Hgb Hct MCV MCH MCHC RDW Std Deviation RDW Coeff of Corrine Plt Count MPV Immature Gran % (Auto) Neut % (Auto) Lymph % (Auto) [place] % (Auto) Eos % (Auto) Baso % (Auto) Absolute Neuts (auto) Absolute Lymphs (auto) Nucleated RBC % D-Dimer Quant (PE/DVT) 0.29 Sodium Potassium Chloride Carbon Dioxide Anion Gap BUN Creatinine Estim Creat Clear Calc Est GFR (MDRD) Af Amer Est GFR (MDRD) Non-Af BUN/Creatinine Ratio Glucose Lactic Acid Calcium Total Bilirubin AST ALT Alkaline Phosphatase Troponin I High Sens Total Protein Albumin Globulin Albumin/Globulin Ratio Lipase Urine Color Yellow Urine Clarity Clear Urine pH 7.0 Ur Specific [place] 1.010 Urine Protein Negative Urine Glucose (UA) Normal Urine Ketones Negative Urine Occult Blood 10 H Urine Nitrite Negative Urine Bilirubin Negative Urine Urobilinogen Normal Ur Leukocyte Esterase 500 H Urine RBC 0 SEEN Urine WBC 5-10 SEEN Ur Squamous Epith Cells 0-5 SEEN Urine Bacteria 1+ Urine Mucus 0 SEEN Radiography Diagnostic Testing: Radiology Impression Abdomen/Pelvis CT 03/14/21 12:28 IMPRESSION: No acute findings in the abdomen or pelvis. Individualized dose optimization techniques were used for this CT. at 1354 Reported and signed by: Asaf Lewis MD Electronically Signed: Asaf Lewis MD at 13:53 EDT Tel , Service support , EKG Initial EKG: Attestation: I personally reviewed and interpreted this EKG as follows: Comments: Sinus rhythm with a ventricular rate of 96 bpm with right atrial enlargement and occasional PACs noted. Discharge Plan Triage Chief Complaint: Abd Pain ED Provider: Dru Calles Dx/Rx/DC Orders Clinical Impression: Acute chest wall pain, Abdominal pain Instructions: ED Abdominal Pain Unkn Cause Fem, ED Chest Wall Pain, Costochondritis, ED Pain, Acute, Uncertain Cause Prescriptions: No Action levothyroxine 150 MCG tablet 150 mcg PO DAILY RF: 0 Primary Care Provider: Sujatha Mcdonald Referrals: Sujatha Mcdonald MD [Primary Care Provider] - 3-5 Days Disposition Disposition: Home, Self Care
[2021-03-14] MEDS: 0.9% Normal Saline 1,000 ML 125 ML IV (12:45)
[2021-03-14 13:01] LABS: Mucous, Urine 0 SEEN /hpf (<or=2+); Red Blood Cells-Urine 0 SEEN /hpf (0-5)
[2021-03-14 13:03] LABS: Absolute Lymphocyte Count 2.64 X10^3/uL (0.83-4.51); Absolute Neutrophil Count 6.4 X10^3/uL (2.0-7.7); Basophil# 0.12 X10^3/uL; Basophil% 1.2 % (0-1); Eosinophil# 0.08 X10^3/uL; Eosinophils% 0.8 % (0-5); Hematocrit 44.6 % (37-47); Hemoglobin 14.8 g/dL (12.0-15.0); Lymphocyte # 2.64 X10^3/ul (0.83-4.51); Mean Corp Hgb Conc 33.2 g/dL (32-36); Mean Corpuscular Hgb 29.5 pg (27.0-32.0); Mean Corpuscular Volume 88.8 fL (81-99); Mean Platelet Vol. 11.1 fl (6.2-12.0); Monocyte# 0.49 X10^3/uL; NRBC Flagged by Analyzer 0 % (0-5); Neutrophil % 65.6 % (47-70); Platelet Count 216 K/mm3 (150-450); RBC Distribution Width CV 13.3 % (11.6-14.6); RBC Distribution Width SD 43.6 fl (35.1-43.9); Red Blood Count 5.02 M/mm3 (4.2-5.4); White Blood Count 9.8 K/mm3 (4.4-11.0)
[2021-03-14 13:05] LABS: Color, Urine Yellow (Yellow); Glucose, Dipstick Normal (Normal); Ketone-Dipstick Negative (Negative); Leukocyte Esterase-Dipstick 500 /ul (Negative); Nitrite-Dipstick Negative (Negative); Occult Blood-Urine 10 /ul (Negative); Protein-Dipstick Negative (Negative); Urine Bilirubin Dipstick Negative (Negative); Urine Clarity Clear (Clear); Urine Urobilinogen Normal (Normal)
[2021-03-14 13:12] LABS: Squamous Epithelial Cells - UA 0-5 SEEN /hpf (5-10); White Blood Cells 5-10 SEEN /hpf (0-5)
[2021-03-14 13:13] LABS: Bacteria 1+ /hpf (None Seen)
[2021-03-14 13:20] LABS: ALB/GLOB Ratio 0.8 RATIO (0.9-2.4); AST(SGOT) 24 U/L (15-37); Alanine Aminotransfer ALT/SGPT 18 U/L (13-56); Albumin, Serum 3.7 g/dL (3.2-5.0); Alkaline Phosphatase 126 U/L (45-117); Anion Gap 8 (5-15); BUN 12 mg/dL (7-18); BUN/Creat Ratio 13.3 RATIO (10-20); Calcium,Total 9.5 mg/dL (8.5-10.1); Chloride 107 mmol/L (98-107); EST Glomerular Filtration Rate 68 mL/min (>60); Est Glom Filt Rate - Afr Amer 82 mL/min (>60); Estimated Creatinine Clearance 65.45 ml/min; Globulin 4.4 g/dL (2.2-4.2); Glucose 106 mg/dL (74-106); Lipase 92 U/L (73-393); Potassium 3.7 mmol/L (3.5-5.1); Protein, Total 8.1 g/dL (6.4-8.2); Sodium Level 140 mmol/L (136-145); Troponin-I HS 7 pg/mL (3.0-54.0)
[2021-03-14 14:25] LABS: D-Dimer Quantitative (DVT/PE) 0.29 FEU/ug/m (0.27-0.49)
[2021-03-14 14:47] VITALS: BP 120/75; PULSE 76; RESP 14; O2SAT 98
[2021-03-14 17:00] LABS: Reflex Lactate? Y
== END 2021-03-14 14:49 | disposition home or self-care (01) ==
PROVIDERS: Emergency Provider Emergency Medicine; PCP Internal Medicine
DX: R07.89 Other chest pain (principal); R10.11 Right upper quadrant pain; R11.0 Nausea; E03.9 Hypothyroidism, unspecified; Z87.891 Personal history of nicotine dependence; Z90.12 Acquired absence of left breast and nipple; Z85.3 Personal history of malignant neoplasm of breast
CPT/HCPCS: 36415; 74176; 80053; 81001; 83605; 83690; 84484; 85025; 85379; 93005; 96360; 96361; 99283; J7030; A4216

== ENCOUNTER 2021-03-17 12:46 | Emergency (ER) | payer MEDICAID, SELFPAY ==
[2021-03-17 12:47] VITALS: BP 130/86; PULSE 128; RESP 18; TEMP 36.7; O2SAT 98; BMI 25.0
[2021-03-17] MEDS: HYDROcodone Bitartrate/Apap 5/325 Tablet PO (14:08)
--- NOTE | 2021-03-17 14:20 | RAD_ITS ---
STUDY: X-RAY - THORACIC SPINE REASON FOR EXAM: Female, 60 years old. Pain in her rib cage, around and into her thoracic spine. Pat states she was seen here Tuesday for chest/rib pain and diagnosed with costochondritis. TECHNIQUE: 3 view(s) of the thoracic spine were obtained. COMPARISON: None. FINDINGS: Normal kyphosis of the thoracic spine. There is no substantial scoliosis. There is demineralization of the thoracic spine with endplate spondylosis. Normal disc space heights. Surgical clips overlie the left chest. The soft tissue structures are unremarkable. RAD/Thoracic Spine 3 Views IMPRESSION: No compression fracture. Electronically Signed: Zach Canada MD ([place]) at 14:25 EDT , Service support ,
[2021-03-17 14:28] LABS: Bacteria 0 SEEN /hpf (None Seen); Mucous, Urine 0 SEEN /hpf (<or=2+)
[2021-03-17 14:35] LABS: Color, Urine Yellow (Yellow); Glucose, Dipstick Normal (Normal); Ketone-Dipstick Negative (Negative); Leukocyte Esterase-Dipstick 100 /ul (Negative); Nitrite-Dipstick Negative (Negative); Occult Blood-Urine 10 /ul (Negative); Protein-Dipstick Negative (Negative); Specific Gravity, Urine 1.015 (1.002-1.030); Urine Bilirubin Dipstick Negative (Negative); Urine Clarity Sl. Cloudy (Clear); Urine Urobilinogen Normal (Normal)
[2021-03-17 14:47] LABS: Red Blood Cells-Urine 0-5 SEEN /hpf (0-5); Squamous Epithelial Cells - UA 0-5 SEEN /hpf (5-10); White Blood Cells 10-25 SEEN /hpf (0-5)
[2021-03-17 15:25] VITALS: BP 125/82; PULSE 83; RESP 14; O2SAT 95
--- NOTE | 2021-03-17 15:49 | ED.VIS.CHEST ---
HPI History of Present Illness Chief Complaint: Chest Pain Informant: patient Narrative Narrative: Patient is a 60-year-old female presenting with worsening rib pain. Patient was seen in the ER 2 days ago and ultimately diagnosed with costochondritis. She states she is been taking ibuprofen 600 mg every 8 hours at home and the pain does not get any better and she states she cannot bear it anymore. She states it is worse over her right ribs and also on her left mid back. It hurts when she takes a deep breath. She does have a history of breast cancer and has appointment to see her PCP in March 25. The office recommend she come to the emergency room to be evaluated more urgently. Patient had normal work-up including D-dimer, troponin, CT of the abdomen and pelvis as well as abdominal labs. She denies any new symptoms. 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 PFSH PFSH Medical History Hx of breast cancer Hypothyroid Home Medications levothyroxine 150 mcg PO DAILY 09/10/13 [History Last Taken Unknown] cyclobenzaprine 10 mg PO TID PRN #20 tab 03/17/21 [Rx Last Taken Unknown] hydrocodone-acetaminophen 1 tab PO Q6H PRN 3 Days #12 tab 03/17/21 [Rx Last Taken Unknown] Allergy/AdvReac Type Severity Reaction Status Date / Time Sulfa (Sulfonamide Allergy Anaphylaxis Verified 03/17/21 12:51 Antibiotics) Penicillins [PCN] AdvReac Nausea Verified 03/17/21 12:51 Surgical History Hx of left mastectomy Social History Smoking Status: Current every day smoker tobacco type: cigarettes ROS ROS ED Constitutional Constitutional ED: Denies chills or fever(s) ENT ENT ED: Denies ear pain or rhinorrhea Cardiovascular Cardiovascular: Reports chest pain; Denies palpitations Respiratory/Chest Respiratory/Chest: Reports dyspnea; Denies cough or dyspnea on exertion Gastrointestinal Gastrointestinal: Denies abdominal pain, nausea or vomiting Genitourinary Genitourinary ED: Denies dysuria Musculoskeletal Musculoskeletal: Denies arthralgias or myalgias Integumentary Denies rash Neurologic Neurologic: Denies headache(s) or weakness Psychiatric Psychiatric: Denies depression EXAM Physical Exam Const Vital Signs: 03/17/21 12:47 03/17/21 15:25 Temperature 98.1 F Temperature Source Temporal Pulse Rate 128 H 83 Respiratory Rate 18 14 Blood Pressure 130/86 H 125/82 H Blood Pressure Mean 100 96 Pulse Ox 98 95 Oxygen Delivery Method Room Air Positive well nourished and well developed General Appearance ED: well developed HEENT Reports moist mucous membranes normocephalic and atraumatic Eyes PERRL Neck no lymphadenopathy and supple Chest Wall inspection of chest normal Chest Narrative: Tenderness palpation of bilateral lower lateral ribs, right worse than left Resp normal respiratory effort and clear to auscultation bilaterally Effort and Inspection: Negative for respiratory distress Cardio regular rate, regular rhythm and no murmurs GI normal to inspection, nondistended, normoactive bowel sounds Back/Spine no CVA tenderness Neuro oriented x3, no sensory deficits noted and gait normal Sensorium / Orientation: awake and alert Motor Exam: strength 5/5 throughout Psych mental status grossly normal Mood & Affect: anxious Skin no rashes or lesions noted MDM MDM MDM Narrative Medical decision making narrative: Patient is evaluated for continued rib pain. She appears nontoxic. She was tachycardic on arrival but that resolved without any intervention. Patient had very thorough work-up 3 days ago for the same complaint. At that time she had a normal D-dimer, normal high sensitive troponin, normal CT abdomen and pelvis. Was felt that she likely costochondritis. Patient wanted to try treated conservatively with NSAIDs. Urinalysis did show 500 leukoesterase with 5-10 white blood cells 0-5 squamous cells. She is not had any urinary symptoms. Repeat urinalysis shows 100 with esterase, 10-25 white blood cells and 0-5 squamous cells with no bacteria. Urine culture sent however patient still does not have any urinary symptoms. She does not have CVA tenderness on exam. Patient does have a history of breast cancer I did obtain a thoracic spine x-ray to look for any compression fracture or lytic lesions. This is normal. She is clear breath sounds and I do not think she has a pneumothorax. Given her normal work-up 3 days ago I do not think she requires repeat imaging or laboratory testing. I do not think this is ACS as it is highly reproducible chest wall pain. She is given a dose of [place] with improvement of her symptoms. She is discharged home with a short course of [place] as well as Flexeril for symptom control. Patient is counseled on signs and symptoms requiring return to the emergency room. Patient verbalizes agreement and understand this plan. Patient discharged home in stable and improved condition. Patient has follow-up with her PCP next week scheduled. Lab Data Labs: Laboratory Results - last 24 hr 03/17/21 14:20 Urine Color Yellow Urine Clarity Sl. Cloudy Urine pH 6.0 Ur Specific [place] 1.015 Urine Protein Negative Urine Glucose (UA) Normal Urine Ketones Negative Urine Occult Blood 10 H Urine Nitrite Negative Urine Bilirubin Negative Urine Urobilinogen Normal Ur Leukocyte Esterase 100 H Urine RBC 0-5 SEEN Urine WBC 10-25 SEEN Ur Squamous Epith Cells 0-5 SEEN Urine Bacteria 0 SEEN Urine Mucus 0 SEEN Radiography Diagnostic Testing: Radiology Impression Thoracic Spine X-Ray 03/17/21 14:20 IMPRESSION: No compression fracture. Electronically Signed: Zach Canada MD ([place]) at 14:25 EDT , Service support , Discharge Plan Triage Chief Complaint: Chest Pain ED Provider: Veronica Dinh Dx/Rx/DC Orders Clinical Impression: Muscle strain of left upper back, Acute chest wall pain Instructions: ED Chest Wall Pain, Costochondritis Prescriptions: New cyclobenzaprine 10 mg tablet 10 mg PO TID PRN (Reason: muscle spasm) Qty: 20 RF: 0 hydrocodone-acetaminophen 5-325 mg tablet 1 tab PO Q6H PRN (Reason: pain) 3 Days Qty: 12 RF: 0 No Action levothyroxine 150 MCG tablet 150 mcg PO DAILY RF: 0 Primary Care Provider: Sujatha Mcdonald Referrals: Sujatha Mcdonald MD [Primary Care Provider] - Activity Restrictions/Additional Instructions: Continue to take ibuprofen as well for the pain. Take deep breaths to prevent pneumonia. If you find it helpful, the Lidoderm patches are available [id number]. They are also available as an ointment. Disposition Disposition: Home, Self Care Discharge Date/Time: 03/17/21 16:02
[2021-03-17] MEDS: Lidocaine 5% Patch 1 PATCH TOPICAL (15:55)
== END 2021-03-17 16:02 | disposition home or self-care (01) ==
PROVIDERS: Emergency Provider Emergency Medicine; PCP Internal Medicine
DX: S29.012A Strain of muscle and tendon of back wall of thorax, initial encounter (principal); X50.0XXA Overexertion from strenuous movement or load, initial encounter; E03.9 Hypothyroidism, unspecified; M94.0 Chondrocostal junction syndrome [Tietze]; R07.81 Pleurodynia; F17.210 Nicotine dependence, cigarettes, uncomplicated; Z85.3 Personal history of malignant neoplasm of breast; Z90.12 Acquired absence of left breast and nipple
CPT/HCPCS: 72072; 81001; 87086; 99284

== ENCOUNTER 2021-03-22 12:40 | Emergency (ER) | payer MEDICAID, SELFPAY ==
[2021-03-22 12:41] VITALS: BP 123/109; PULSE 115; RESP 18; TEMP 36.9; O2SAT 99; BMI 25.8
[2021-03-22] MEDS: HYDROcodone Bitartrate/Apap 5/325 Tablet PO (15:05)
--- NOTE | 2021-03-22 15:10 | RAD_ITS ---
HISTORY: Right-sided rib pain EXAMINATION/TECHNIQUE: XR Ribs Unilateral W/ PA Chest Min 3 Views: COMPARISON: 921 FINDINGS: LINES/DEVICES: None. LUNGS: No consolidation, edema or effusion. No pneumothorax. MEDIASTINUM AND CARDIOVASCULAR STRUCTURES: Cardiac silhouette not enlarged. Central airways and mediastinal contour are unremarkable. RIBS AND OSSEOUS STRUCTURES: No evidence of an acute displaced rib fracture. RAD/Ribs Uni Min 3V w/PA Chest IMPRESSION: No acute radiographic abnormality. at 1548 Reported and signed by: Asaf Lewis MD Electronically Signed: Asaf Lewis MD at 15:47 EDT Tel , Service support ,
--- NOTE | 2021-03-22 15:40 | EDS_ITS ---
HPI History of Present Illness Chief Complaint: Chest Other Informant: patient Onset/Context/Timing Onset: Weeks (3-4) Quality of Pain: Sharp and Stabbing Worsened by: Deep breathing, movement Relieved by: Analgesic medications Associated Symptoms Associated Symptoms: Negative for Parasthesias, Weakness, Inability to ambulate and Loss of consciousness Narrative Narrative: Patient presents with right-sided chest pain that has been constant for the past 3 to 4 weeks. Patient was seen here and diagnosed with costochondritis. Patient was given prescriptions for Flexeril and [place] at that time. Patient states the [place] helps with the pain but she is now out of it. Patient denies any new injury. Patient states her pain radiates up into her right upper chest. Patient states it is worse with movement. Patient also states it is worse with deep breathing. Patient describes it as sharp and stabbing. PFSH PFSH Medical History Hx of breast cancer Hypothyroid Home Medications levothyroxine 150 mcg PO DAILY 09/10/13 [History Last Taken Unknown] cyclobenzaprine 10 mg PO TID PRN #20 tab 03/17/21 [Rx Last Taken Unknown] hydrocodone-acetaminophen 1 tab PO Q6H PRN 3 Days #12 tab 03/22/21 [Rx Last Taken Unknown] Allergy/AdvReac Type Severity Reaction Status Date / Time Sulfa (Sulfonamide Allergy Anaphylaxis Verified 03/17/21 12:51 Antibiotics) Penicillins [PCN] AdvReac Nausea Verified 03/17/21 12:51 Surgical History Hx of left mastectomy Social History Smoking Status: Current every day smoker tobacco type: cigarettes ROS ROS ED Constitutional Constitutional ED: Denies chills or fever(s) Eyes Eyes: Denies blurry vision or change in vision ENT ENT ED: Denies rhinorrhea or sore throat Cardiovascular Cardiovascular: Reports chest pain; Denies palpitations Respiratory/Chest Respiratory/Chest: Denies cough or dyspnea Gastrointestinal Gastrointestinal: Reports nausea; Denies abdominal pain or vomiting Genitourinary Genitourinary ED: Denies dysuria or hematuria Musculoskeletal Musculoskeletal: Denies back pain or neck pain Integumentary Denies abscess or rash Neurologic Neurologic: Denies headache(s) or weakness Allergic/Immunologic Allergic/Immunologic ED: Denies mouth swelling or urticaria EXAM Physical Exam Const Vital Signs: 03/22/21 12:41 Temperature 98.4 F Temperature Source Temporal Pulse Rate 115 H Respiratory Rate 18 Blood Pressure 123/109 H Blood Pressure Mean 113 Pulse Ox 99 Oxygen Delivery Method Room Air Positive well nourished and well developed General Appearance ED: well developed HEENT Reports moist mucous membranes Eyes PERRL and EOMs intact bilaterally Neck full ROM, supple and no JVD Chest Wall Chest Narrative: There is tenderness over the right lower chest. There is no bony crepitance or step-off. Resp normal respiratory effort and clear to auscultation bilaterally Cardio regular rate, regular rhythm and no murmurs GI normal to inspection, nondistended, normoactive bowel sounds and non-tender Palpation: soft Extremity normal to inspection General Extremety ED: Negative for edema or tenderness General Extremity: Negative for edema Neuro oriented x3, CN's II-XII intact bilaterally and no sensory deficits noted Sensorium / Orientation: alert Motor Exam: strength 5/5 throughout Psych mental status grossly normal Skin no rashes or lesions noted MDM MDM MDM Narrative Medical decision making narrative: Patient was given a dose of [place] here. X- rays of the right ribs were obtained. There are 5 views. On my interpretation there is no acute fracture. There is no pneumothorax. There is no acute cardiopulmonary process. Radiologist also interpreted the x-ray and agrees. Patient was given a prescription for a short course of [place]. Patient was instructed to follow-up with her primary care physician this week. Patient states she has an appointment in 3 days. Patient was instructed to return if worse in any way. Patient understood and was agreeable with the plan. All questions were answered. Radiography Diagnostic Testing: Clinical Impression(s) from Imaging Studies Ribs w/Chest X-Ray 03/22/21 15:10 IMPRESSION: No acute radiographic abnormality. at 1548 Reported and signed by: Asaf Lewis MD Electronically Signed: Asaf Lewis MD at 15:47 EDT Tel , Service support , Discharge Plan Triage Chief Complaint: Chest Other ED Provider: Scout Cates Dx/Rx/DC Orders Clinical Impression: Costochondritis Instructions: ED Chest Wall Pain, Costochondritis Prescriptions: Continued hydrocodone-acetaminophen 5-325 mg tablet 1 tab PO Q6H PRN (Reason: pain) 3 Days Qty: 12 RF: 0 No Action levothyroxine 150 MCG tablet 150 mcg PO DAILY RF: 0 cyclobenzaprine 10 mg tablet 10 mg PO TID PRN (Reason: muscle spasm) Qty: 20 RF: 0 Primary Care Provider: Sujatha Mcdonald Referrals: Sujatha Mcdonald MD [Primary Care Provider] - [facility] appointment Disposition Disposition: Home, Self Care Discharge Date/Time: 03/22/21 16:17
[2021-03-22 16:15] VITALS: PULSE 78; RESP 16; O2SAT 98
== END 2021-03-22 16:17 | disposition home or self-care (01) ==
PROVIDERS: Emergency Provider Emergency Medicine; PCP Internal Medicine
DX: M94.0 Chondrocostal junction syndrome [Tietze] (principal); F17.210 Nicotine dependence, cigarettes, uncomplicated; E03.9 Hypothyroidism, unspecified; Z85.3 Personal history of malignant neoplasm of breast
CPT/HCPCS: 71101; 99283

== ENCOUNTER 2021-05-23 11:27 | Emergency (ER) | payer MEDICAID, SELFPAY ==
[2021-05-23 11:28] VITALS: BP 171/145; PULSE 99; RESP 20; TEMP 36.1; O2SAT 98; BMI 25.0
--- NOTE | 2021-05-23 12:52 | RAD_ITS ---
STUDY: X-RAY CHEST REASON FOR EXAM: Female, 60 years old. right chest pain TECHNIQUE: PA and lateral views of the chest. COMPARISON: 03/22/2021 FINDINGS: There is hyperinflation of the lungs consistent with chronic obstructive lung disease (COPD). There is no demonstrated pleural abnormality. Normal size heart. Normal mediastinum and lulu. Normal visualized pulmonary arteries. Normal visualized aortic arch and descending thoracic aorta. Normal visualized thoracic spine. Normal visualized ribs, clavicles, and shoulders. There is no demonstrated abnormality of the visualized soft tissue structures of the upper abdomen. RAD/Chest PA and Lateral IMPRESSION: Emphysema without pneumonia or atelectasis. Electronically Signed: Cl Caal MD at 13:31 EST Tel , Service support ,
--- NOTE | 2021-05-23 12:53 | EX.ED.DYSGE1 ---
HPI History of Present Illness Chief Complaint: Back Detail of Chief Complaint: Right rib pain and left great toe injury Informant: patient Onset/Context/Timing Onset: Month(s) Current Severity: Moderate Maximum Severity: Severe Narrative Narrative: Patient presents secondary to right lower rib pain. She describes pain that wraps around the right lower ribs into the right upper quadrant. Pain is been ongoing for at least 2 months. She reportedly was told she had costochondritis but then another doctor told her she did not. She has been taking Tylenol and ibuprofen without improvement. She was tried on a course of steroids but states she had an allergic reaction to them. She is scheduled to see a sports medicine doctor on Tuesday but presented to the ER today due to continued pain. Last evening she also caught her left great toenail when getting out of the tub and pulled it up. She was able to push it back in place and put a dressing on. 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 [facility] Medical History (Updated 05/23/21 @ 15:[address] Dana Yepez MD) Asthma Gastroesophageal reflux disease Hx of breast cancer Hyperlipidemia Hypothyroid Major depressive disorder Psoriasis Home Medications levothyroxine 150 mcg PO DAILY 09/10/13 [History Last Taken Unknown] cholecalciferol (vitamin D3) 1 unit PO DAILY 05/23/21 [History Last Taken Unknown] hydrocodone-acetaminophen 1 tab PO Q6H PRN 3 Days #10 tab 05/23/21 [Rx Last Taken Unknown] lorazepam 1 mg PO DAILY PRN 05/23/21 [History Last Taken Unknown] potassium chloride 20 meq PO DAILY 05/23/21 [History Last Taken Unknown] Allergy/AdvReac Type Severity Reaction Status Date / Time Sulfa (Sulfonamide Allergy Anaphylaxis Verified 05/23/21 11:31 Antibiotics) Penicillins [PCN] AdvReac Nausea Verified 05/23/21 11:31 Surgical History Hx of left mastectomy Social History Smoking Status: Current every day smoker tobacco type: cigarettes ROS ROS ED Constitutional Constitutional ED: Denies chills or fever(s) Eyes Eyes: Denies change in vision ENT ENT ED: Denies sore throat Cardiovascular Cardiovascular: Reports chest pain Respiratory/Chest Respiratory/Chest: Denies cough or dyspnea Gastrointestinal Gastrointestinal: Reports abdominal pain; Denies diarrhea, nausea or vomiting Musculoskeletal Musculoskeletal: Reports back pain Integumentary Denies rash Neurologic Neurologic: Denies headache(s) or weakness Psychiatric Psychiatric: Reports anxiety Allergic/Immunologic Allergic/Immunologic ED: Denies urticaria EXAM Physical Exam Const Vital Signs: 05/23/21 11:28 Temperature 97.0 F L Temperature Source Temporal Pulse Rate 99 Respiratory Rate 20 H Blood Pressure 171/145 H Blood Pressure Mean 153 Pulse Ox 98 Oxygen Delivery Method Room Air Positive well nourished and well developed General Appearance ED: well developed HEENT Reports moist mucous membranes Eyes PERRL and EOMs intact bilaterally Neck no lymphadenopathy and supple Chest Wall inspection of chest normal and palpation of chest normal Resp normal respiratory effort and clear to auscultation bilaterally Cardio regular rate and regular rhythm GI normal to inspection, nondistended, normoactive bowel sounds and non-tender Palpation: soft Extremity Extremity Narrative: Great toenail on the left foot elevated with dried blood under the nail. Base of the toenail is still tucked in appropriately. No bony tenderness. Neuro oriented x3 Sensorium / Orientation: alert MDM MDM MDM Narrative Medical decision making narrative: Lab work and chest x-ray obtained. Patient given morphine and Zofran for pain. Lab Data Attestation: I reviewed the patient's lab results. Labs: Laboratory Results - last 24 hr 05/23/21 05/23/21 13:10 13:10 WBC 10.0 RBC 4.81 Hgb 14.0 Hct 42.4 MCV 88.1 MCH 29.1 MCHC 33.0 RDW Std Deviation 45.0 H RDW Coeff of [place] 14.0 Plt Count 247 MPV 11.2 Immature Gran % (Auto) 1.200 H Neut % (Auto) 61.9 Lymph % (Auto) 30.2 [place] % (Auto) 4.8 Eos % (Auto) 0.9 Baso % (Auto) 1.0 Absolute Neuts (auto) 6.2 Absolute Lymphs (auto) 3.02 Nucleated RBC % 0 Sodium 141 Potassium 4.3 Chloride 106 Carbon Dioxide 25.0 Anion Gap 10 BUN 23 H Creatinine 1.19 H Estim Creat Clear Calc 49.50 Est GFR (MDRD) Af Amer 60 Est GFR (MDRD) Non-Af 49 L BUN/Creatinine Ratio 19.3 Glucose 98 Calcium 10.2 H Total Bilirubin 0.70 Direct Bilirubin 0.15 AST 93 H ALT 118 H Alkaline Phosphatase 157 H Total Protein 8.1 Albumin 3.9 Globulin 4.2 Lipase 203 Radiography Chest X-Ray - ED: 1 View, Read by ED Physician and Chronic Changes Diagnostic Testing: Clinical Impression(s) from Imaging Studies Chest X-Ray 05/23/21 12:52 IMPRESSION: Emphysema without pneumonia or atelectasis. Electronically Signed: Cl Caal MD at 13:31 EST Tel , Service support , Treatment and Re-Evaluation Comments:: X-ray reveals chronic changes only. Lab work unremarkable including normal LFTs and lipase. On repeat evaluation patient resting more comfortably. Left great toe will be wrapped and dressed. Patient be given a short course of [place] for pain. She will follow up with sports medicine in 2 days as scheduled. Discharge Plan Triage Chief Complaint: Back ED Provider: Dana Yepez Dx/Rx/DC Orders Clinical Impression: Avulsed toenail, Chest wall pain Instructions: ED Pain, Acute, Uncertain Cause Prescriptions: New hydrocodone-acetaminophen 5-325 mg tablet 1 tab PO Q6H PRN (Reason: pain) 3 Days Qty: 10 RF: 0 No Action levothyroxine 150 MCG tablet 150 mcg PO DAILY RF: 0 potassium chloride 20 mEq packet 20 meq PO DAILY RF: 0 lorazepam 1 mg tablet 1 mg PO DAILY PRN (Reason: Anxiety) RF: 0 cholecalciferol (vitamin D3) 125 mcg (5,000 unit) tablet 1 unit PO DAILY RF: 0 Primary Care Provider: Sujatha Mcdonald Referrals: Sujatha Mcdonald MD [Primary Care Provider] - Activity Restrictions/Additional Instructions: Follow-up with sports medicine on Tuesday as scheduled. Disposition Disposition: Home, Self Care
[2021-05-23] MEDS: Morphine 4 MG/ML Syringe IV (13:08)
[2021-05-23] MEDS: Ondansetron 4 MG/2 ML Vial IV (13:09)
[2021-05-23 13:22] LABS: Absolute Lymphocyte Count 3.02 X10^3/uL (0.83-4.51); Absolute Neutrophil Count 6.2 X10^3/uL (2.0-7.7); Eosinophil# 0.09 X10^3/uL; Eosinophils% 0.9 % (0-5); Hematocrit 42.4 % (37-47); Lymphocyte # 3.02 X10^3/ul (0.83-4.51); Lymphocyte % 30.2 % (19-41); Mean Corpuscular Hgb 29.1 pg (27.0-32.0); Mean Corpuscular Volume 88.1 fL (81-99); Mean Platelet Vol. 11.2 fl (6.2-12.0); Monocyte# 0.48 X10^3/uL; Monocyte% 4.8 % (0-10); NRBC Flagged by Analyzer 0 % (0-5); Neutrophil % 61.9 % (47-70); Platelet Count 247 K/mm3 (150-450); Red Blood Count 4.81 M/mm3 (4.2-5.4)
[2021-05-23 13:37] LABS: AST(SGOT) 93 U/L (15-37); Alanine Aminotransfer ALT/SGPT 118 U/L (13-56); Albumin, Serum 3.9 g/dL (3.2-5.0); Alkaline Phosphatase 157 U/L (45-117); Anion Gap 10 (5-15); BUN 23 mg/dL (7-18); BUN/Creat Ratio 19.3 RATIO (10-20); Bilirubin, Direct 0.15 mg/dL (0.00-0.30); Calcium,Total 10.2 mg/dL (8.5-10.1); Chloride 106 mmol/L (98-107); Creatinine, Serum 1.19 mg/dL (0.55-1.02); EST Glomerular Filtration Rate 49 mL/min (>60); Est Glom Filt Rate - Afr Amer 60 mL/min (>60); Globulin 4.2 g/dL (2.2-4.2); Glucose 98 mg/dL (74-106); Lipase 203 U/L (73-393); Potassium 4.3 mmol/L (3.5-5.1); Protein, Total 8.1 g/dL (6.4-8.2); Sodium Level 141 mmol/L (136-145)
[2021-05-23 15:06] VITALS: BP 136/80; PULSE 88; RESP 16; TEMP 37.1; O2SAT 96
== END 2021-05-23 15:23 | disposition home or self-care (01) ==
PROVIDERS: Emergency Provider Emergency Medicine; PCP Internal Medicine
DX: S91.202A Unspecified open wound of left great toe with damage to nail, initial encounter (principal); W23.0XXA Caught, crushed, jammed, or pinched between moving objects, initial encounter; Y93.9 Activity, unspecified; Y92.002 Bathroom of unspecified non-institutional (private) residence as the place of occurrence of the external cause; Y99.9 Unspecified external cause status; R07.89 Other chest pain; E03.9 Hypothyroidism, unspecified; E78.5 Hyperlipidemia, unspecified; F32.9 Major depressive disorder, single episode, unspecified; F17.210 Nicotine dependence, cigarettes, uncomplicated; J45.909 Unspecified asthma, uncomplicated; K21.9 Gastro-esophageal reflux disease without esophagitis; J43.9 Emphysema, unspecified; Z85.3 Personal history of malignant neoplasm of breast; Z79.899 Other long term (current) drug therapy
CPT/HCPCS: 71046; 80048; 80076; 83690; 85025; 96374; 96375; 99283; J2405

== ENCOUNTER 2021-06-25 12:16 | Emergency (ER) | payer MEDICAID, SELFPAY ==
[2021-06-25 12:16] VITALS: BP 120/81; PULSE 121; RESP 16; TEMP 36.2; O2SAT 96; BMI 24.0
--- NOTE | 2021-06-25 12:48 | ED.VIS.BACK ---
HPI History of Present Illness Chief Complaint: Back Informant: patient and family Onset/Context/Timing Onset: Days (6) Context: Gradual Onset Timing: Continuous Quality: Sharp Location: Lumbar Worsened by: improves with Movement and Ambulation Relieved by: Remaining Still Associated Symptoms Associated Symptoms: Negative for Numbness, Tingling, Radiation to Right Leg, Radiation to Left Leg, Fever, Abdominal Pain, Dysuria, Unable to Ambulate, Unable to Transfer, Urinary Retention, Urinary Incontinence, Constipation and Fecal Incontinence Narrative Narrative: Patient presents with back pain that has been getting progressively worse over the past 6 days. Patient states it is constant. Patient states that it is sharp. Patient states it is worse with any movement or attempted ambulation. Patient states whenever she moves, she gets pain and spasms of her low back. Patient denies any radiation of the pain. Patient denies any bowel or bladder changes. Patient denies any saddle anesthesia. Patient's family member that is with her today noticed that she has been having some diminished blinking of her right eye today. Patient admits to some weakness of the right side of her face. Patient denies any extremity weakness. Patient denies any visual changes. [facility] Medical History Asthma Gastroesophageal reflux disease Hx of breast cancer Hyperlipidemia Hypothyroid Major depressive disorder Psoriasis Home Medications levothyroxine 150 mcg PO DAILY 09/10/13 [History Last Taken Unknown] cholecalciferol (vitamin D3) 1 unit PO DAILY 05/23/21 [History Last Taken Unknown] hydrocodone-acetaminophen 1 tab PO Q6H PRN 3 Days #10 tab 05/23/21 [Rx Last Taken Unknown] lorazepam 1 mg PO DAILY PRN 05/23/21 [History Last Taken Unknown] potassium chloride 20 meq PO DAILY 05/23/21 [History Last Taken Unknown] gabapentin 300 mg PO TID 06/25/21 [History Last Taken Unknown] hydrocodone-acetaminophen 1 tab PO Q6H PRN PRN 3 Days #10 tablet 06/25/21 [Rx Last Taken Unknown] ondansetron 4 mg PO Q8H PRN PRN #10 tab 06/25/21 [Rx Last Taken Unknown] prednisone 60 mg PO DAILY #15 tablet 06/25/21 [Rx Last Taken Unknown] tizanidine 4 mg PO Q6H PRN PRN 06/25/21 [History Last Taken Unknown] Allergy/AdvReac Type Severity Reaction Status Date / Time Sulfa (Sulfonamide Allergy Anaphylaxis Verified 06/25/21 12:19 Antibiotics) Penicillins [PCN] AdvReac Nausea Verified 06/25/21 12:19 Surgical History Hx of left mastectomy Social History Smoking Status: Current every day smoker tobacco type: cigarettes ROS ROS ED Constitutional Constitutional ED: Denies chills or fever(s) Eyes Eyes: Denies blurry vision or change in vision ENT ENT ED: Denies rhinorrhea or sore throat Cardiovascular Cardiovascular: Denies chest pain or palpitations Respiratory/Chest Respiratory/Chest: Denies cough or dyspnea Gastrointestinal Gastrointestinal: Reports nausea; Denies vomiting Genitourinary Genitourinary ED: Denies dysuria or hematuria Musculoskeletal Musculoskeletal: Reports back pain; Denies neck pain Integumentary Reports rash; Denies abscess Neurologic Neurologic: Denies headache(s) or weakness Allergic/Immunologic Allergic/Immunologic ED: Denies mouth swelling or urticaria EXAM Physical Exam Const Vital Signs: 06/25/21 12:16 Temperature 97.2 F L Temperature Source Temporal Pulse Rate 121 H Respiratory Rate 16 Blood Pressure 120/81 H Blood Pressure Mean 94 Pulse Ox 96 Oxygen Delivery Method Room Air Positive well nourished and well developed General Appearance ED: well developed HEENT Reports moist mucous membranes Eyes PERRL and EOMs intact bilaterally Neck supple and no JVD Resp normal respiratory effort and clear to auscultation bilaterally Cardio regular rate, regular rhythm and no murmurs GI normal to inspection, nondistended, normoactive bowel sounds and non-tender Palpation: soft Back/Spine Back/Spine Narrative: There is tenderness over the lumbar spine and paraspinal muscles bilaterally. There is no bony crepitance or step-off. There is no edema or ecchymosis. Range of motion was limited in all motions of the lumbar spine secondary to pain. Lumbar Spine / Lower Back: ROM limited and straight leg raise negative bilaterally Extremity normal to inspection General Extremety ED: Negative for edema or tenderness General Extremity: Negative for edema Neuro oriented x3, CN's II-XII intact bilaterally and no sensory deficits noted Neuro Narrative: Cranial nerves II through XII are intact with the exception of weakness of the right facial muscles. There is asymmetric elevation of the eyebrows. There is asymmetry with smiling. Otherwise, there are no focal motor or sensory deficits noted. Sensorium / Orientation: alert Motor Exam: strength 5/5 throughout Deep Tendon Reflexes: Rt Patellar (L4): 2+, Lt Patellar (L4): 2+, Rt Ankle (S1): 2+ and Lt Ankle (S1): 2+ Deep Tendon Reflexes Back: Rt Patellar (L4): 2+, Lt Patellar (L4): 2+, Rt Ankle (S1): 2+ and Lt Ankle (S1): 2+ Psych mental status grossly normal Skin no rashes or lesions noted MDM MDM MDM Narrative Medical decision making narrative: Patient was given a dose of prednisone and Zofran here. Patient was also given injection of morphine. X-rays of the lumbar spine were obtained. There are 3 views. On my interpretation, there are some degenerative changes noted. There is no acute fracture or spondylolisthesis. Patient was given prescriptions for [place], Zofran, and prednisone. Patient was instructed to follow-up with her primary care physician in 5 to 7 days. Patient was instructed to taper right eyelid closed at night when she sleeps. Patient was instructed to return if worse in any way. Patient understood and was agreeable with the plan. All questions were answered. Radiography X-Ray: LS SPine, Read by ED Physician, Read by Radiologist, No Fracture, Normal Bony Alignment and DJD Diagnostic Testing: Clinical Impression(s) from Imaging Studies Lumbar Spine X-Ray 06/25/21 13:19 IMPRESSION: Degenerative changes of the spine, as detailed above. Electronically Signed: Ney Lan MD at 13:46 EST , Service support , Discharge Plan Triage Chief Complaint: Back ED Provider: Scout Cates Dx/Rx/DC Orders Clinical Impression: Acute low back pain, Duarte's palsy Instructions: ED Back Pain (Acute or Chronic), ED Duarte's Palsy Prescriptions: New hydrocodone-acetaminophen [hydrocodone-acetaminophen] 1 TABLET tablet 1 tab PO Q6H PRN PRN (Reason: Pain) 3 Days Qty: 10 RF: 0 prednisone 20 MG tablet 60 mg PO DAILY Qty: 15 RF: 0 ondansetron [ondansetron] 4 MG tablet 4 mg PO Q8H PRN PRN (Reason: Nausea) Qty: 10 RF: 0 No Action levothyroxine 150 MCG tablet 150 mcg PO DAILY RF: 0 potassium chloride 20 mEq packet 20 meq PO DAILY RF: 0 lorazepam 1 mg tablet 1 mg PO DAILY PRN (Reason: Anxiety) RF: 0 cholecalciferol (vitamin D3) 125 mcg (5,000 unit) tablet 1 unit PO DAILY RF: 0 hydrocodone-acetaminophen 5-325 mg tablet 1 tab PO Q6H PRN (Reason: pain) 3 Days Qty: 10 RF: 0 tizanidine 4 mg tablet 4 mg PO Q6H PRN PRN (Reason: Pain) RF: 0 gabapentin 300 mg capsule 300 mg PO TID RF: 0 Primary Care Provider: Sujatha Mcdonald Referrals: Sujatha Mcdonald MD [Primary Care Provider] - 3-5 Days Disposition Disposition: Home, Self Care
[2021-06-25] MEDS: predniSONE 20 MG Tablet 60 MG PO (13:05)
[2021-06-25] MEDS: Ondansetron ODT 4 MG Tablet PO (13:05)
[2021-06-25] MEDS: Morphine 4 MG/ML Syringe IM (13:06)
--- NOTE | 2021-06-25 13:19 | RAD_ITS ---
STUDY: X-RAY - LUMBAR SPINE REASON FOR EXAM: Female, 61 years old. Injury/Pain TECHNIQUE: Low back pain. view(s) of the lumbar spine were obtained. COMPARISON: None FINDINGS: Normal lumbar lordosis. There is a mild dextroscoliosis of the lumbar spine. There is a normal alignment of the vertebrae. Disc space narrowing and anterior spondylosis at the L4-L5 and L5-S1 level. Facet joint osteoarthritis. Large amount of fecal material is seen in the colon. There is atherosclerotic calcification of the abdominal aorta without a demonstrated aneurysm. RAD/Lumbar Spine 2 or 3 Views IMPRESSION: Degenerative changes of the spine, as detailed above. Electronically Signed: Ney Lan MD at 13:46 EST , Service support ,
== END 2021-06-25 15:20 | disposition home or self-care (01) ==
PROVIDERS: Emergency Provider Emergency Medicine; PCP Internal Medicine; Visit Provider Emergency Medicine
DX: M54.50 Low back pain, unspecified (principal); G51.0 Bell's palsy; F17.210 Nicotine dependence, cigarettes, uncomplicated; E03.9 Hypothyroidism, unspecified; Z79.899 Other long term (current) drug therapy
CPT/HCPCS: 72100; 96372; 99283; A4216

== ENCOUNTER 2021-07-14 12:30 | Outpatient (CLI) | payer MEDICAID, SELFPAY ==
[2021-07-14 12:41] LABS: Mucous, Urine 0 SEEN /hpf (<or=2+); Red Blood Cells-Urine 0 SEEN /hpf (0-5)
[2021-07-14 13:16] LABS: Erythrocyte Sedimentation Rate 35 mm/hr (0-30)
[2021-07-14 13:17] LABS: Color, Urine Yellow (Yellow); Glucose, Dipstick Normal (Normal); Ketone-Dipstick Negative (Negative); Leukocyte Esterase-Dipstick 500 /ul (Negative); Nitrite-Dipstick Negative (Negative); Occult Blood-Urine Negative /ul (Negative); Protein-Dipstick Negative (Negative); Specific Gravity, Urine 1.015 (1.002-1.030); Urine Bilirubin Dipstick Negative (Negative); Urine Clarity Sl. Cloudy (Clear); Urine Urobilinogen Normal (Normal)
[2021-07-14 13:20] LABS: Absolute Neutrophil Count 4.1 X10^3/uL (2.0-7.7); Hematocrit 38.4 % (37-47); Hemoglobin 12.9 g/dL (12.0-15.0); Mean Corp Hgb Conc 33.6 g/dL (32-36); Mean Corpuscular Hgb 29.9 pg (27.0-32.0); Mean Corpuscular Volume 89.1 fL (81-99); Platelet Count 226 K/mm3 (150-450); Red Blood Count 4.31 M/mm3 (4.2-5.4); White Blood Count 7.4 K/mm3 (4.4-11.0)
[2021-07-14 13:30] LABS: Bacteria 1+ /hpf (None Seen); Squamous Epithelial Cells - UA 0-5 SEEN /hpf (5-10); White Blood Cells 10-25 SEEN /hpf (0-5)
[2021-07-14 13:49] LABS: Eosinophil 1 % (0-5); Lymphocyte 43 % (19-41); Monocyte 7 % (0-10); Neutrophil-Band 2 % (0-5); Neutrophil-Segmented 47 % (47-70); Total Cells Counted 100 (MANUAL DIFF)
[2021-07-14 14:10] LABS: ALB/GLOB Ratio 0.9 RATIO (0.9-2.4); AST(SGOT) 117 U/L (15-37); Alanine Aminotransfer ALT/SGPT 122 U/L (13-56); Albumin, Serum 3.6 g/dL (3.2-5.0); Alkaline Phosphatase 248 U/L (45-117); Anion Gap 9 (5-15); BUN 21 mg/dL (7-18); BUN/Creat Ratio 15.4 RATIO (10-20); Calcium,Total 11.3 mg/dL (8.5-10.1); Chloride 102 mmol/L (98-107); Creatinine, Serum 1.36 mg/dL (0.55-1.02); EST Glomerular Filtration Rate 42 mL/min (>60); Est Glom Filt Rate - Afr Amer 51 mL/min (>60); Globulin 4.1 g/dL (2.2-4.2); Glucose 111 mg/dL (74-106); Potassium 3.5 mmol/L (3.5-5.1); Protein, Total 7.7 g/dL (6.4-8.2); Sodium Level 138 mmol/L (136-145)
[2021-07-15 10:33] LABS: Pathologist Review Reviewed
[2021-07-16 14:10] LABS: PROEL- A/G Ratio 1.1 (0.7-1.7); PROEL- Albumin 3.7 g/dL (2.9-4.4); PROEL- Alpha-1 Globulin 0.5 g/dL (0.0-0.4); PROEL- Beta Globulin 1.2 g/dL (0.7-1.3); PROEL- Gamma Globulin 0.6 g/dL (0.4-1.8); PROEL- Globulin, Total 3.3 g/dL (2.2-3.9); PROELU- Albumin, Urine 43.3 % (.); PROELU- Alpha-1-Globulin,Ur 8.4 % (.); PROELU- Alpha-2-Globulin,Ur 18.8 % (.); PROELU- Gamma Globulin, Ur 7.5 % (.); Total Protein, Ur 7.5 mg/dL (Not Estab.)
== END 2021-07-14 23:59 | disposition short-term general hospital (02) ==
PROVIDERS: PCP Internal Medicine; Referring Provider Orthopaedic Surgery; Visit Provider Orthopaedic Surgery
DX: S22.080A Wedge compression fracture of T11-T12 vertebra, initial encounter for closed fracture (principal); M46.96 Unspecified inflammatory spondylopathy, lumbar region; M48.061 Spinal stenosis, lumbar region without neurogenic claudication; Z85.3 Personal history of malignant neoplasm of breast
CPT/HCPCS: 80053; 81001; 84165; 84166; 85007; 85027; 85652; 86141

== ENCOUNTER 2021-07-27 10:14 | Outpatient (CLI) | payer MEDICAID, SELFPAY ==
--- NOTE | 2021-07-27 10:23 | NM_ITS ---
CLINICAL: 61-year-old female with reported history of carcinoma of the breast with current complaint of axial skeletal pain. WHOLE BODY 99m Tc MDP RADIONUCLIDE BONE SCINTIGRAPHY COMPARISON: Plain film radiograph report lumbar spine 06/25/2021 FINDINGS: Following the intravenous administration of 26.0 mCi of 99m Tc MDP, whole body bone images reveal: 1. Innumerable foci of increased radiopharmaceutical concentration are defined in the appendicular and axial skeletal structures too many to individually articulate (to include multiple bilateral ribs, the right and left proximal-distal humerus, bilateral proximal-mid femurs, right proximal tibia, left proximal-mid fibular diaphysis), the bilateral devon- calvarium. 2. Facilitated uptake is observed in the mid cervical spine posteriorly on the left and right, acromioclavicular compartments of both shoulders, sternoclavicular compartment of the right shoulder. 3. The remaining skeletal structures are scintigraphically unremarkable with normal-appearing renal images and urinary bladder activity identified. NM/Bone Scan Whole Body IMPRESSION: 1. The increase in radiopharmaceutical multifocally defined in the right-left calvarium, appendicular and axial skeleton is commensurate with diffuse osteoblastic turnover associated with osseous metastatic disease. 2. Degenerative arthritis appears expressed in the cervical spine, bilateral shoulders. Electronically Signed: Cl Rodney DO at 7:25 EST ,
== END 2021-07-27 23:59 | disposition home or self-care (01) ==
LOC: NM 10:17
PROVIDERS: PCP Internal Medicine; Referring Provider Orthopaedic Surgery; Visit Provider Orthopaedic Surgery
DX: M54.6 Pain in thoracic spine (principal); S22.080A Wedge compression fracture of T11-T12 vertebra, initial encounter for closed fracture; Z85.3 Personal history of malignant neoplasm of breast
CPT/HCPCS: 78306; A9503

== ENCOUNTER 2021-09-09 15:29 | Emergency (ER) | payer MEDICAID, SELFPAY ==
[2021-09-09 15:43] VITALS: BP 126/76; PULSE 105; RESP 18; TEMP 36.1; O2SAT 96; BMI 22.6
--- NOTE | 2021-09-09 16:28 | ED.VIS.BACK ---
HPI History of Present Illness Chief Complaint: Back Narrative Narrative: 61-year-old female with history of back pain secondary to metastatic breast cancer currently undergoing radiation therapy. Patient was sent in by Dr. Garcia because he was unable to get an MRI sooner. Apparently she has been having some decreased sensation over the left arm for about 3 to 4 days. She denies any trauma. He does not have any motor deficits. She states she always has back pain due to the metastatic cancer but this is new. She does not have any exquisite neck pain. She has had a bone scan which showed mets to the cervical region previously. [facility] Medical History Asthma Gastroesophageal reflux disease Hx of breast cancer Hyperlipidemia Hypothyroid Major depressive disorder Psoriasis Home Medications levothyroxine 150 mcg PO DAILY 09/10/13 [History Last Taken Unknown] cholecalciferol (vitamin D3) 1 unit PO DAILY 05/23/21 [History Last Taken Unknown] hydrocodone-acetaminophen 1 tab PO Q6H PRN 3 Days #10 tab 05/23/21 [Rx Last Taken Unknown] lorazepam 1 mg PO DAILY PRN 05/23/21 [History Last Taken Unknown] potassium chloride 20 meq PO DAILY 05/23/21 [History Last Taken Unknown] gabapentin 300 mg PO TID 06/25/21 [History Last Taken Unknown] hydrocodone-acetaminophen 1 tab PO Q6H PRN PRN 3 Days #10 tablet 06/25/21 [Rx Last Taken Unknown] ondansetron 4 mg PO Q8H PRN PRN #10 tab 06/25/21 [Rx Last Taken Unknown] prednisone 60 mg PO DAILY #15 tablet 06/25/21 [Rx Last Taken Unknown] tizanidine 4 mg PO Q6H PRN PRN 06/25/21 [History Last Taken Unknown] Allergy/AdvReac Type Severity Reaction Status Date / Time Sulfa (Sulfonamide Allergy Anaphylaxis Verified 09/09/21 15:32 Antibiotics) Penicillins [PCN] AdvReac Nausea Verified 09/09/21 15:32 Surgical History Hx of left mastectomy Social History Smoking Status: Current every day smoker tobacco type: cigarettes ROS ROS ED Constitutional Constitutional ED: Denies chills or fever(s) Eyes Eyes: Denies blurry vision or change in vision ENT ENT ED: Denies rhinorrhea or sore throat Cardiovascular Cardiovascular: Denies chest pain or palpitations Respiratory/Chest Respiratory/Chest: Denies dyspnea or sputum Gastrointestinal Gastrointestinal: Denies abdominal pain, nausea or vomiting Genitourinary Genitourinary ED: Denies dysuria or hematuria Musculoskeletal Musculoskeletal: Reports back pain and neck pain; Denies myalgias Integumentary Denies Abrasions or rash Neurologic Neurologic: Reports paresthesias LUE; Denies headache(s) Psychiatric Psychiatric: Denies anxiety or depression EXAM Physical Exam Const Vital Signs: 09/09/21 15:43 09/09/21 18:44 09/09/21 20:11 Temperature 97 F L Temperature Source Temporal Pulse Rate 105 H 67 Respiratory Rate 18 18 18 Blood Pressure 126/76 H Blood Pressure Mean 92 Pulse Ox 96 99 Oxygen Delivery Method Room Air Room Air Positive well nourished General Appearance ED: NAD HEENT Reports moist mucous membranes Negative for trauma Eyes PERRL and EOMs intact bilaterally Resp normal respiratory effort and clear to auscultation bilaterally Cardio regular rate and regular rhythm Back/Spine Back/Spine Narrative: Tenderness throughout the lumbar and thoracic spine. Cervical spine is generally tender. No focal step-offs. Left arm strength is 5/5. Diminished sensation over the entire left arm. She specifically notes decreased sensation over the left pinky and the left thumb and index finger. Extremity General Extremety ED: Negative for edema General Extremity: Negative for edema Neuro oriented x3 Sensorium / Orientation: alert Motor Exam: strength 5/5 throughout Psych mental status grossly normal Skin no rashes or lesions noted MDM MDM MDM Narrative Medical decision making narrative: Spoke with Dr. Hernandez who is on-call. He did not have any specific lab work swallow obtain basic labs. I will try to obtain an MRI of the cervical spine which was recommended. Patient having new paresthesias in the left upper extremity. She is describing it to the lateral pinky and to the first and second digits. She has motor strength which is 5/5. I obtain basic lab work and her potassium was a little bit low but other than that her calcium was fine which had been a problem in the past. She was given 40 mEq of potassium. CBC shows no leukocytosis. Hemoglobin 12.0. LFTs are normal. I did obtain an MRI of the spine which does not show any metastatic lesions.At the C5-C6 level there was some loss of intervertebral disc height and some endplate spondylosis of the vertebral body. Broad-based disc herniation. There is some impression on the thecal sac. Moderate spinal stenosis. There was severe bilateral facet arthropathy and severe bilateral neuroforaminal stenosis. At the C6-C7 aspect the findings were similar except there was only severe foraminal stenosis on the left. I do not believe the patient has an emergent need to be transferred. I spoke with Dr. Hernandez and reviewed the results with him and he states he will have her follow-up with Dr. Garcia tomorrow. Patient amenable to this plan. 1. C5-C6 and C6-C7 cervical spinal stenosis 2. C5-C6 and C6-C7 cervical disc herniation 3. C5-C6 and C6-C7 foraminal stenosis Lab Data Attestation: I reviewed the patient's lab results. Labs: Laboratory Results - last 24 hr 09/09/21 09/09/21 16:49 16:49 WBC 9.5 RBC 3.70 L Hgb 12.0 Hct 35.0 L MCV 94.6 MCH 32.4 H MCHC 34.3 RDW Std Deviation 69.2 H RDW Coeff of Corrine 20.0 H Plt Count 280 MPV 9.1 Immature Gran % (Auto) 1.500 H Neut % (Auto) 81.6 H Lymph % (Auto) 11.3 L Fannin % (Auto) 5.2 Eos % (Auto) 0.0 Baso % (Auto) 0.4 Absolute Neuts (auto) 7.8 H Absolute Lymphs (auto) 1.08 Nucleated RBC % 0.3 Differential Comment SCANNED Sodium 135 L Potassium 3.0 L Chloride 102 Carbon Dioxide 27.0 Anion Gap 6 BUN 11 Creatinine 0.76 Estim Creat Clear Calc 73.69 Est GFR (MDRD) Af Amer 100 Est GFR (MDRD) Non-Af 82 BUN/Creatinine Ratio 14.5 Glucose 104 Calcium 9.1 Total Bilirubin 0.50 AST 15 ALT 23 Alkaline Phosphatase 536 H Total Protein 6.9 Albumin 3.1 L Globulin 3.8 Albumin/Globulin Ratio 0.8 L Radiography Diagnostic Testing: Clinical Impression(s) from Imaging Studies Cervical Spine MRI 09/09/21 18:32 IMPRESSION: 1. There is straightening of the normal cervical lordosis. 2. C5-6: Loss of intervertebral disc height. There is endplate spondylosis of the vertebral body. Broad-based disc herniation. Impression upon anterior thecal sac. Moderate spinal stenosis. There is bilateral facet arthropathy. Severe bilateral neural foraminal stenosis. 3. C6-7: Loss of intervertebral disc height. There is endplate spondylosis of the vertebral body. Broad-based disc herniation. Impression upon anterior thecal sac. Mild spinal stenosis. There is bilateral facet arthropathy. Severe left neural foraminal stenosis. Electronically Signed: Mayank Mahmood MD at 19:59 EDT , Discharge Plan Triage Chief Complaint: Back ED Provider: Dheeraj Bauer Dx/Rx/DC Orders Instructions: ED Radiculopathy, Cervical Prescriptions: No Action levothyroxine 150 MCG tablet 150 mcg PO DAILY RF: 0 potassium chloride 20 mEq packet 20 meq PO DAILY RF: 0 lorazepam 1 mg tablet 1 mg PO DAILY PRN (Reason: Anxiety) RF: 0 cholecalciferol (vitamin D3) 125 mcg (5,000 unit) tablet 1 unit PO DAILY RF: 0 hydrocodone-acetaminophen 5-325 mg tablet 1 tab PO Q6H PRN (Reason: pain) 3 Days Qty: 10 RF: 0 tizanidine 4 mg tablet 4 mg PO Q6H PRN PRN (Reason: Pain) RF: 0 gabapentin 300 mg capsule 300 mg PO TID RF: 0 hydrocodone-acetaminophen [hydrocodone-acetaminophen] 1 TABLET tablet 1 tab PO Q6H PRN PRN (Reason: Pain) 3 Days Qty: 10 RF: 0 prednisone 20 MG tablet 60 mg PO DAILY Qty: 15 RF: 0 ondansetron [ondansetron] 4 MG tablet 4 mg PO Q8H PRN PRN (Reason: Nausea) Qty: 10 RF: 0 Primary Care Provider: Sujatha Mcdonald Referrals: Sujatha Mcdonald MD [Primary Care Provider] - Disposition Disposition: Home, Self Care Discharge Date/Time: 09/09/21 20:14
[2021-09-09 16:55] LABS: Absolute Lymphocyte Count 1.08 X10^3/uL (0.83-4.51); Absolute Neutrophil Count 7.8 X10^3/uL (2.0-7.7); Basophil# 0.04 X10^3/uL; Basophil% 0.4 % (0-1); Lymphocyte # 1.08 X10^3/ul (0.83-4.51); Lymphocyte % 11.3 % (19-41); Mean Corp Hgb Conc 34.3 g/dL (32-36); Mean Corpuscular Hgb 32.4 pg (27.0-32.0); Mean Corpuscular Volume 94.6 fL (81-99); Mean Platelet Vol. 9.1 fl (6.2-12.0); Monocyte% 5.2 % (0-10); NRBC Flagged by Analyzer 0.3 % (0-5); Neutrophil # 7.78 X10^3/uL (2.7-7.7); Neutrophil % 81.6 % (47-70); POSITIVE MORPHOLOGY YES; Platelet Count 280 K/mm3 (150-450); RBC Distribution Width SD 69.2 fl (35.1-43.9); White Blood Count 9.5 K/mm3 (4.4-11.0)
[2021-09-09 16:57] LABS: Differential Indicated SCAN CRITERIA MET
[2021-09-09 17:12] LABS: Differential Comment SCANNED
[2021-09-09 17:14] LABS: ALB/GLOB Ratio 0.8 RATIO (0.9-2.4); AST(SGOT) 15 U/L (15-37); Alanine Aminotransfer ALT/SGPT 23 U/L (13-56); Albumin, Serum 3.1 g/dL (3.2-5.0); Alkaline Phosphatase 536 U/L (45-117); Anion Gap 6 (5-15); BUN 11 mg/dL (7-18); BUN/Creat Ratio 14.5 RATIO (10-20); Calcium,Total 9.1 mg/dL (8.5-10.1); Chloride 102 mmol/L (98-107); Creatinine, Serum 0.76 mg/dL (0.55-1.02); EST Glomerular Filtration Rate 82 mL/min (>60); Est Glom Filt Rate - Afr Amer 100 mL/min (>60); Estimated Creatinine Clearance 73.69 ml/min; Globulin 3.8 g/dL (2.2-4.2); Glucose 104 mg/dL (74-106); Protein, Total 6.9 g/dL (6.4-8.2); Sodium Level 135 mmol/L (136-145)
--- NOTE | 2021-09-09 18:32 | MRI_ITS ---
EXAM: MR CERVICAL SPINE WITHOUT AND WITH INTRAVENOUS CONTRAST CLINICAL INDICATION: neck pain/ metastatic cancer Left arm numbness. Current radiation therapy. Patient had left side mastectomy and lymph node removal TECHNIQUE: Multiplanar and multisequence MR images of the cervical spine without and with intravenous contrast were performed. This report was created using [employer] report [employer] technology. CONTRAST: IV 13mL DOTAREM COMPARISON: None. FINDINGS: VERTEBRAE: There is straightening of the normal cervical lordosis. SPINAL CORD: Unremarkable in signal and morphology. SOFT TISSUES: Unremarkable. No prevertebral soft tissue swelling. LYMPH NODES: Unremarkable. There is no cervical adenopathy. DISCS/SPINAL CANAL/NEURAL FORAMINA: C2-C3: C2-3: Loss of intervertebral disc height. There is endplate spondylosis of the vertebral body. Normal central canal and intervertebral neuroforamina. There is bilateral facet arthropathy. C3-C4: C3-4: Loss of intervertebral disc height. There is endplate spondylosis of the vertebral body. Normal central canal and intervertebral neuroforamina. There is bilateral facet arthropathy. C4-C5: C4-5: Loss of intervertebral disc height. There is endplate spondylosis of the vertebral body. Normal central canal and intervertebral neuroforamina. There is bilateral facet arthropathy. C5-C6: C5-6: Loss of intervertebral disc height. There is endplate spondylosis of the vertebral body. Broad-based disc herniation. Impression upon anterior thecal sac. Moderate spinal stenosis. There is bilateral facet arthropathy. Severe bilateral neural foraminal stenosis. C6-C7: C6-7: Loss of intervertebral disc height. There is endplate spondylosis of the vertebral body. Broad-based disc herniation. Impression upon anterior thecal sac. Mild spinal stenosis. There is bilateral facet arthropathy. Severe left neural foraminal stenosis. C7-T1: Normal endplates. Normal disc height and morphology. Normal central canal and intervertebral neuroforamina. MRI/Spine Cervical W/WO Contrast IMPRESSION: 1. There is straightening of the normal cervical lordosis. 2. C5-6: Loss of intervertebral disc height. There is endplate spondylosis of the vertebral body. Broad-based disc herniation. Impression upon anterior thecal sac. Moderate spinal stenosis. There is bilateral facet arthropathy. Severe bilateral neural foraminal stenosis. 3. C6-7: Loss of intervertebral disc height. There is endplate spondylosis of the vertebral body. Broad-based disc herniation. Impression upon anterior thecal sac. Mild spinal stenosis. There is bilateral facet arthropathy. Severe left neural foraminal stenosis. Electronically Signed: Mayank Mahmood MD at 19:59 EDT ,
[2021-09-09 18:44] VITALS: RESP 18
[2021-09-09] MEDS: Potassium Chloride Oral Tablet 20 MEQ 40 MEQ PO (19:31)
[2021-09-09 20:11] VITALS: PULSE 67; RESP 18; O2SAT 99
== END 2021-09-09 20:14 | disposition home or self-care (01) ==
PROVIDERS: Emergency Provider Student in an Organized Health Care Education/Training Program; PCP Internal Medicine; Visit Provider Student in an Organized Health Care Education/Training Program
DX: M47.819 Spondylosis without myelopathy or radiculopathy, site unspecified (principal); C79.89 Secondary malignant neoplasm of other specified sites; E78.5 Hyperlipidemia, unspecified; M50.223 Other cervical disc displacement at C6-C7 level; F17.210 Nicotine dependence, cigarettes, uncomplicated; Z85.3 Personal history of malignant neoplasm of breast; K21.9 Gastro-esophageal reflux disease without esophagitis; E03.9 Hypothyroidism, unspecified; F32.A Depression, unspecified
CPT/HCPCS: 72156; 80053; 85025; 99283; A9575; A4216

== ENCOUNTER 2021-12-27 18:43 | Emergency (ER) | payer MEDICAID, SELFPAY ==
[2021-12-27 18:44] VITALS: BP 145/109; PULSE 103; RESP 16; TEMP 36.6; O2SAT 99; BMI 22.8
--- NOTE | 2021-12-27 19:14 | EX.ED.DYSGE1 ---
HPI History of Present Illness Chief Complaint: Other, Pain/Inj Detail of Chief Complaint: Back pain Informant: patient Narrative Narrative: Patient presents emergency department complaint of back pain that she has had for months. Patient currently being treated for metastatic breast cancer that is metastasized to her spine. Patient will be seeing oncology in 3 days and they will adjust her medications at that time. Patient is currently in palliative care and is on methadone as well as oxycodone. Patient states that she did a little bit of moving yesterday and today the pain is severe. She wants something to help manage her pain better. She denies any falls or trauma to her back. Prior similar symptoms: Yes PFSH PFSH Medical History Asthma Gastroesophageal reflux disease Hx of breast cancer Hyperlipidemia Hypothyroid Major depressive disorder Psoriasis Home Medications levothyroxine 150 mcg tablet 150 mcg PO DAILY 09/10/13 [History Last Taken Unknown] cholecalciferol (vitamin D3) 125 mcg (5,000 unit) tablet 1 unit PO DAILY 05/23/21 [History Last Taken Unknown] lorazepam 1 mg tablet 1 mg PO DAILY PRN Anxiety 05/23/21 [History Last Taken Unknown] potassium chloride 20 mEq oral packet 20 meq PO DAILY 05/23/21 [History Last Taken Unknown] ondansetron 4 mg disintegrating tablet 4 mg PO Q8H PRN PRN Nausea #10 tabs 06/25/21 [Rx Last Taken Unknown] methadone 5 mg tablet mg 12/27/21 [History Last Taken Unknown] oxycodone 10 mg tablet tab 12/27/21 [History Last Taken Unknown] Allergy/AdvReac Type Severity Reaction Status Date / Time Sulfa (Sulfonamide Allergy Anaphylaxis Verified 12/27/21 18:46 Antibiotics) Penicillins [PCN] AdvReac Nausea Verified 12/27/21 18:46 Surgical History Hx of left mastectomy Social History Smoking Status: Light Smoker (<10/day) ROS ROS ED Review of Systems ROS Unobtainable: other Constitutional Constitutional ED: Reports lethargy; Denies chills, fever(s), sweats or weight loss Eyes Eyes: Denies blurry vision, change in vision or diplopia ENT ENT ED: Denies rhinorrhea or sore throat Cardiovascular Cardiovascular: Reports chest pain and racing heartbeat; Denies orthopnea Respiratory/Chest Respiratory/Chest: Reports dyspnea and dyspnea on exertion; Denies cough, orthopnea or sputum Gastrointestinal Gastrointestinal: Denies abdominal pain, diarrhea, nausea or vomiting Genitourinary Genitourinary ED: Denies dysuria, hematuria or urinary frequency Musculoskeletal Musculoskeletal: Reports back pain; Denies arthralgias, myalgias or neck pain Integumentary Denies abscess, Abrasions or rash Neurologic Neurologic: Denies headache(s) or weakness Psychiatric Psychiatric: Denies anxiety, depression or suicidal thoughts Endocrine Endocrinology: Denies polydipsia, polyphagia or polyuria Hematologic/Lymphatic Hematologic/Lymphatic: Denies easy bleeding, easy bruising or lymphadenopathy Allergic/Immunologic Allergic/Immunologic ED: Denies mouth swelling, tongue swelling or urticaria EXAM Physical Exam Const Vital Signs: 12/27/21 18:44 Temperature 97.9 F Temperature Source Temporal Pulse Rate 103 H Respiratory Rate 16 Blood Pressure 145/109 H Blood Pressure Mean 121 Pulse Ox 99 Oxygen Delivery Method Room Air Positive well nourished and well developed General Appearance ED: well developed and NAD HEENT Reports TM's clear and moist mucous membranes normocephalic and atraumatic; Negative for trauma or tenderness Tympanic Membrane ED: Yes TM's clear Eyes PERRL and EOMs intact bilaterally General Eye ED: Negative for pale conjunctiva or scleral icterus Neck no lymphadenopathy, supple and no JVD General: Negative for tenderness Chest Wall inspection of chest normal and palpation of chest normal Chest: Negative for tenderness Resp normal respiratory effort and clear to auscultation bilaterally Effort and Inspection: Negative for respiratory distress or pain with movement Auscultation: Negative for rhonchi, wheezes or diminished lung sounds Cardio regular rate, regular rhythm, S1 normal heart sound, S2 normal heart sound and no murmurs Peripheral Pulses: pulses 2+ throughout GI normal to inspection, nondistended, normoactive bowel sounds, soft to palpation, non-tender, non-distended and no masses Back/Spine no CVA tenderness Back/Spine Narrative: Patient with diffuse tenderness palpation over the thoracic and lumbar spine. There is no erythema or warmth noted. There is no ecchymosis or bruising noted. Negative straight leg raises. Normal deep tendon reflexes. Extremity normal to inspection General Extremety ED: Negative for edema General Extremity: Negative for edema Neuro oriented x3, CN's II-XII intact bilaterally, no sensory deficits noted and gait normal Sensorium / Orientation: awake, alert, oriented to person, oriented to place and oriented to time Motor Exam: strength 5/5 throughout and strength abnormal Psych mental status grossly normal Skin no rashes or lesions noted and no wounds MDM MDM MDM Narrative Medical decision making narrative: Patient will be given a shot of Dilaudid 1 mg IM as well as Zofran 4 mg IM. Patient also will be given a Duragesic patch x1 until she can follow-up with palliative care and Dr. Jean Baptiste. Discharge Plan Triage Chief Complaint: Other, Pain/Inj ED Provider: Dru Calles Dx/Rx/DC Orders Clinical Impression: Acute exacerbation of chronic low back pain Instructions: ED Back Pain (Acute or Chronic) Prescriptions: No Action levothyroxine 150 MCG tablet 150 mcg PO DAILY potassium chloride 20 mEq packet 20 meq PO DAILY Label Comments: TAKE 1 PACKET DAILY lorazepam 1 mg tablet 1 mg PO DAILY PRN (Reason: Anxiety) Label Comments: Take 1 tablet by mouth once daily as needed for up to 30 days. cholecalciferol (vitamin D3) 125 mcg (5,000 unit) tablet 1 unit PO DAILY Label Comments: TAKE 1 TABLET BY MOUTH EVERY DAY ondansetron [ondansetron] 4 MG tablet 4 mg PO Q8H PRN PRN (Reason: Nausea) Qty: 10 0RF methadone 5 mg tablet Label Comments: TAKE 2 TABLETS BY MOUTH TWICE DAILY oxycodone 10 mg tablet Label Comments: TAKE 1 TABLET BY MOUTH EVERY 4 HOURS NEEDED FOR PAIN Primary Care Provider: Sujatha Mcdonald Referrals: Sujatha Mcdonald MD [Primary Care Provider] - Renate Garcia MD [STAFF PHYSICIAN] - 3-5 Days Disposition Disposition: Home, Self Care
[2021-12-27] MEDS: Ondansetron 4 MG/2 ML Vial IM (19:22)
[2021-12-27] MEDS: HYDROmorphone 1 MG/ML Syringe IM (19:22)
[2021-12-27] MEDS: fentaNYL 25 MCG Patch TD (19:24)
== END 2021-12-27 19:55 | disposition home or self-care (01) ==
PROVIDERS: Emergency Provider Emergency Medicine; PCP Internal Medicine; Visit Provider Emergency Medicine
DX: M54.50 Low back pain, unspecified (principal); C79.51 Secondary malignant neoplasm of bone; C50.919 Malignant neoplasm of unspecified site of unspecified female breast; E78.5 Hyperlipidemia, unspecified; F17.200 Nicotine dependence, unspecified, uncomplicated; J45.909 Unspecified asthma, uncomplicated; E03.9 Hypothyroidism, unspecified; G89.29 Other chronic pain
CPT/HCPCS: 96372; 99282; J2405

== ENCOUNTER 2024-09-10 09:13 | Emergency (ER) | payer MEDICAID, SELFPAY ==
[2024-09-10 09:14] VITALS: BP 132/81; PULSE 97; RESP 16; TEMP 36.8; O2SAT 99; BMI 29.7
[2024-09-10 09:16] VITALS: BP 132/81; PULSE 96; RESP 18; TEMP 36.7; O2SAT 96
--- NOTE | 2024-09-10 09:40 | RAD_ITS ---
EXAM: PA chest and right ribs, three views. CLINICAL HISTORY: Metastatic breast cancer 2 years ago with chemotherapy. Lateral right rib pain. No trauma. COMPARISON: Chest and rib radiographs from of 10 1021 TECHNIQUE: PA chest and oblique views of the right ribs. 3 views total FINDINGS: Is a waviness the lateral mid right ribs that was not present on the prior study is suspicious for nondisplaced fractures. Heart size is normal. No airspace consolidation, pneumothorax or pleural effusion. RAD/Ribs Uni Min 3V w/PA Chest IMPRESSION: No acute cardiopulmonary process. Nondisplaced right rib fractures are suspected. Reading Location: [facility]
--- NOTE | 2024-09-10 09:42 | EX.ED.DYSGE1 ---
HPI History of Present Illness Chief Complaint: Weakness Informant: patient Narrative Narrative: 64-year-old female presenting with 3 days gradual onset pain in her right lateral chest wall. She states she has had some pain like this before when she was treated for metastatic breast cancer. She states it was to her spine and all over her body with regards to bony metastases. She had chemotherapy and radiation, and states the majority of that was 2 or 3 years ago. She states just within the last couple weeks she had a repeat bone scan for routine screening, has not had the results of it yet. Following with [facility] oncology last following with Dr. Flores and she cannot remember the radiation oncology people. She denies any known injury to her chest wall. She states it sometimes hurts to move but not to take a deep breath, she denies any dyspnea, cough, abdominal pain, nausea, vomiting, or changes with eating. PFSH PFSH Medical History Asthma Gastroesophageal reflux disease Hx of breast cancer Hyperlipidemia Hypothyroid Major depressive disorder Psoriasis Home Medications ?Medication ?Instructions ?Recorded ?Last Taken ?Type levothyroxine 150 mcg tablet 150 mcg PO DAILY 09/10/13 Unknown History cholecalciferol (vitamin D3) 125 1 unit PO DAILY 05/23/21 Unknown History mcg (5,000 unit) tablet lorazepam 1 mg tablet 1 mg PO DAILY PRN Anxiety 05/23/21 Unknown History potassium chloride 20 mEq oral 20 meq PO DAILY 05/23/21 Unknown History packet ondansetron 4 mg disintegrating 4 mg PO Q8H PRN PRN Nausea #10 tabs 06/25/21 Unknown Rx tablet methadone 5 mg tablet mg 12/27/21 Unknown History oxycodone 10 mg tablet tab 12/27/21 Unknown History Allergy/AdvReac Type Severity Reaction Status Date / Time Sulfa (Sulfonamide Allergy Anaphylaxis Verified 09/10/24 09:16 Antibiotics) Penicillins (PCN) AdvReac Nausea Verified 09/10/24 09:16 Surgical History Hx of left mastectomy Social History Smoking Status: Light Smoker (<10/day) ROS ROS ED Constitutional Constitutional ED: Denies chills or fever(s) Eyes Eyes: Denies change in vision or diplopia ENT ENT ED: Denies rhinorrhea or sore throat Cardiovascular Cardiovascular: Denies chest pain or palpitations Respiratory/Chest Respiratory/Chest: Reports other Details: R lat rib pain ; Denies cough or dyspnea Gastrointestinal Gastrointestinal: Denies abdominal pain, diarrhea, melena, nausea or vomiting Genitourinary Genitourinary ED: Denies dysuria or hematuria Musculoskeletal Musculoskeletal: Denies back pain or neck pain Integumentary Denies abscess or rash Neurologic Neurologic: Denies headache(s), paresthesias or weakness EXAM Physical Exam Const Vital Signs: 09/10/24 09:14 09/10/24 09:16 09/10/24 09:45 Temperature 98.3 F 98.1 F Temperature Source Temporal Oral Pulse Rate 97 96 Respiratory Rate 16 18 Respiratory Pattern Normal Blood Pressure 132/81 H 132/81 H Blood Pressure Mean 98 98 Pulse Ox 99 96 Oxygen Delivery Method Room Air Room Air Positive well nourished and well developed General Appearance ED: well developed and NAD HEENT Reports moist mucous membranes normocephalic and atraumatic Eyes PERRL and EOMs intact bilaterally Neck full ROM and supple Chest Wall inspection of chest normal Chest Narrative: Right lateral chest wall reproducible tenderness without subcutaneous emphysema, step-off, abscess, skin change abnormality/discoloration/rash. No splinting with deep inspiration. Resp normal respiratory effort and clear to auscultation bilaterally Cardio regular rate, regular rhythm and no murmurs GI non-tender and non-distended Auscultation: normoactive bowel sounds Palpation: soft Back/Spine no CVA tenderness General Back: other FROM Extremity normal to inspection General Extremety ED: Negative for edema, pulses abnormal or tenderness General Extremity: Negative for edema or pulses abnormal Neuro oriented x3, CN's II-XII intact bilaterally and no sensory deficits noted Sensorium / Orientation: awake and alert Motor Exam: strength 5/5 throughout Skin no rashes or lesions noted and no wounds MDM MDM MDM Narrative Medical decision making narrative: Obtain 3-view x-ray series of the right ribs including a PA chest, my interpretation there is no pulmonary contusion or pneumonia or pneumothorax. I do not see an obvious displaced rib fracture, radiology thinks there could be but they are not able to rule it in or out. No obvious lytic lesions. Patient understands that possibilities here include chest wall/intercostal strain, fractured rib, including pathologic fracture, and/or metastatic cancer to the rib. She states now that she had a bone scan and then she skipped the follow-up because she was extremely anxious about learning the results, but has a repeat appointment this week and is planning on going. I reassured her it is safe to treat her pain, she states she has pain medication at home does not require any prescriptions. Radiography Diagnostic Testing: Clinical Impression(s) from Imaging Studies Ribs w/Chest X-Ray 09/10/24 09:40 IMPRESSION: No acute cardiopulmonary process. Nondisplaced right rib fractures are suspected. Reading Location: [facility] Discharge Plan Triage Chief Complaint: Weakness ED Provider: Balbir Barnett Dx/Rx/DC Orders Clinical Impression: Right-sided chest wall pain Instructions: ED Rib Contusion or Minor Fracture, ED Chest Wall Strain Prescriptions: No Action levothyroxine 150 MCG tablet 150 mcg PO DAILY potassium chloride 20 mEq packet 20 meq PO DAILY Patient Comments: TAKE 1 PACKET DAILY lorazepam 1 mg tablet 1 mg PO DAILY PRN (Reason: Anxiety) Patient Comments: Take 1 tablet by mouth once daily as needed for up to 30 days. cholecalciferol (vitamin D3) 125 mcg (5,000 unit) tablet 1 unit PO DAILY Patient Comments: TAKE 1 TABLET BY MOUTH EVERY DAY ondansetron [ondansetron] 4 MG tablet 4 mg PO Q8H PRN PRN (Reason: Nausea) Qty: 10 0RF methadone 5 mg tablet Patient Comments: TAKE 2 TABLETS BY MOUTH TWICE DAILY oxycodone 10 mg tablet Patient Comments: TAKE 1 TABLET BY MOUTH EVERY 4 HOURS NEEDED FOR PAIN Primary Care Provider: Sujatha Mcdonald Referrals: Sujatha Mcdonald MD [Primary Care Provider] - (and/or Oncology as scheduled) Print Language: Polish Disposition Disposition: Home, Self Care
== END 2024-09-10 12:13 | disposition home or self-care (01) ==
PROVIDERS: Emergency Provider Emergency Medicine; PCP Internal Medicine; Visit Provider Emergency Medicine
DX: R07.89 Other chest pain (principal); E78.5 Hyperlipidemia, unspecified; R53.1 Weakness; Z85.3 Personal history of malignant neoplasm of breast; K21.9 Gastro-esophageal reflux disease without esophagitis; E03.9 Hypothyroidism, unspecified; F32.9 Major depressive disorder, single episode, unspecified; F17.210 Nicotine dependence, cigarettes, uncomplicated
CPT/HCPCS: 71101; 99282